=== PATIENT | female | born 1940 | race Caucasian/White ===

== ENCOUNTER 2017-03-03 13:31 | Inpatient (IN) | payer MEDICARE ==
[2017-03-03] MEDS ORDERED: CLINDAMYCIN 600 MG/D5W RTU 50 ML IV ONE (13:45)
--- NOTE | 2017-03-03 13:47 | ER Document Report ---
ED General - General Stated Complaint: LEFT LEG PAIN Time Seen by Provider: 03/03/17 13:40 Mode of Arrival: Medic Information source: Patient Notes: 76-year-old female presents with complaints of fever left leg pain. Patient notes leg pain started last night, fever started today. Patient denies any history of DVTs or PEs. Patient was recently started on Humira TRAVEL OUTSIDE OF THE [place] IN LAST 30 DAYS: No - HPI Onset: Yesterday Onset/Duration: Persistent, Worse Quality of pain: Achy Severity: Mild Pain Level: 1 Associated symptoms: Fever, Leg swelling Exacerbated by: Denies Relieved by: Denies Similar symptoms previously: No Recently seen / treated by doctor: No - Related Data Allergies/Adverse Reactions: No Known Allergies Allergy (Verified 09/03/16 10:17) Past Medical History - Social History Smoking Status: Never Smoker Cigarette use (# per day): No Chew tobacco use (# tins/day): No Smoking Education Provided: No Family History: Reviewed & Not Pertinent - Past Medical History Cardiac Medical History: Reports: Hx Hypercholesterolemia, Hx Hypertension Denies: Hx Heart Attack Pulmonary Medical History: Denies: Hx Asthma Neurological Medical History: Denies: Hx Cerebrovascular Accident, Hx Seizures GI Medical History: Denies: Hx Hepatitis, Hx Hiatal Hernia, Hx Ulcer Musculoskeltal Medical History: Reports Hx Arthritis - Osteo, Rheumatoid Psychiatric Medical History: Reports: Hx Anxiety, Hx Depression Infectious Medical History: Denies: Hx Hepatitis Past Surgical History: Reports: Hx Orthopedic Surgery - bilateral knees, Hx Tonsillectomy. Denies: Hx Hysterectomy, Hx Mastectomy, Hx Open Heart Surgery, Hx Pacemaker - Immunizations Hx Diphtheria, Pertussis, Tetanus Vaccination: No Review of Systems - Review of Systems Notes: PHYSICAL EXAMINATION: GENERAL: Well-appearing, well-nourished and in no acute distress. Febrile HEAD: Atraumatic, normocephalic. EYES: Pupils equal round and reactive to light, extraocular movements intact, conjunctiva are normal. ENT: Nares patent, oropharynx clear without exudates. Moist mucous membranes. NECK: Normal range of motion, supple without lymphadenopathy LUNGS: Breath sounds clear to auscultation bilaterally and equal. No wheezes rales or rhonchi. HEART: Regular rate and rhythm without murmurs ABDOMEN: Soft, nontender, nondistended abdomen. No guarding, no rebound. No masses appreciated. Female : deferred Musculoskeletal: Normal range of motion, no pitting or edema. No cyanosis. NEUROLOGICAL: Cranial nerves grossly intact. Normal speech, normal gait. Normal sensory, motor exams PSYCH: Normal mood, normal affect. SKIN: Left lower extremity edematous erythematous warm to touch from ankle to knee right lower extremity is cool to touch Physical Exam - Vital signs Vitals: Temp Pulse Resp BP Pulse Ox 100.7 F H 103 H 18 123/58 L 95 03/03/17 13:53 03/03/17 13:53 03/03/17 13:53 03/03/17 13:53 03/03/17 13:53 Course - Re-evaluation Re-evalutation: 03/03/17 14:55 Patient is noted to have cellulitis, Doppler was negative, white count was 31, 000, lactic acid is 3.4 patient meets sepsis criteria will be started on IV antibiotics fluids have been bolused - Vital Signs Vital signs: Temp Pulse Resp BP Pulse Ox 100.7 F H 103 H 18 123/58 L 95 03/03/17 13:53 03/03/17 13:53 03/03/17 13:53 03/03/17 13:53 03/03/17 13:53 - Laboratory Result Diagrams: 03/03/17 14:09 03/03/17 14:09 Laboratory results interpreted by me: 03/03/17 03/03/17 03/03/17 14:09 14:09 14:09 WBC 31.2 H* RDW 15.6 H Glucose 133 H Lactic Acid 3.4 H - Diagnostic Test Radiology reviewed: Image reviewed, Reports reviewed - Doppler lower extremity negative Critical Care Note - Critical Care Note Total time excluding time spent on procedures (mins): 40 Comments: 40 minutes of critical care time spent in direct contact evaluating and reevaluating the patient, treating symptoms, reviewing labs and studies and speaking with family and consultants excluding any procedures Discharge - Discharge Clinical Impression: Cellulitis Qualifiers: Site of cellulitis: extremity Site of cellulitis of extremity: lower extremity Laterality: left Qualified Code(s): L03.116 - Cellulitis of left lower limb Sepsis Qualifiers: Sepsis type: sepsis due to unspecified organism Qualified Code(s): A41.9 - Sepsis, unspecified organism Condition: Serious Disposition: ADMITTED INPATIENT Admitting Provider: Hospitalist Unit Admitted: Telemetry
[2017-03-03 14:29] LABS: HEMATOCRIT 43.4 % (36.0-47.0); HEMOGLOBIN 14.4 g/dL (12.0-15.5); HGB HCT DIFFERENCE -0.2; MEAN CORPUSCULAR HEMOGLOBIN 31.7 pg (27.0-33.4); MEAN CORPUSCULAR HGB CONC 33.1 g/dL (32.0-36.0); MEAN CORPUSCULAR VOLUME 96 fl (80-97); RED BLOOD COUNT 4.54 10^6/uL (3.72-5.28); RED CELL DISTRIBUTION WIDTH 15.6 % (11.5-14.0)
[2017-03-03 14:37] LABS: WHITE BLOOD COUNT 31.2 10^3/uL (4.0-10.5)
[2017-03-03 14:40] LABS: ALANINE AMINOTRANSFERASE 34 U/L (9-52); ALBUMIN 4.2 g/dL (3.5-5.0); ALKALINE PHOSPHATASE 107 U/L (38-126); ANION GAP 13 (5-19); ASPARTATE AMINO TRANSFERASE 24 U/L (14-36); BILIRUBIN,DIRECT 0.3 mg/dL (0.0-0.4); BILIRUBIN,TOTAL 0.9 mg/dL (0.2-1.3); BLOOD UREA NITROGEN 17 mg/dL (7-20); CALCIUM 9.3 mg/dL (8.4-10.2); CARBON DIOXIDE 22 mmol/L (22-30); CHLORIDE 104 mmol/L (98-107); CREATININE RESULT 0.58 mg/dL (0.52-1.25); GLUCOSE 133 mg/dL (75-110); POTASSIUM 4.4 mmol/L (3.6-5.0); SODIUM 139.1 mmol/L (137-145); TOTAL PROTEIN 6.5 g/dL (6.3-8.2)
[2017-03-03 14:47] LABS: ANISOCYTOSIS SLIGHT; BAND NEUTROPHILS % (MANUAL) 5 % (3-5); BASOPHILS % (MANUAL) 0 % (0-2); EOSINOPHILS % (MANUAL) 0 % (0-6); LYMPHOCYTES % (MANUAL) 1 % (13-45); TOTAL CELLS COUNTED 100
[2017-03-03 14:54] LABS: POIKILOCYTOSIS SLIGHT; POLYCHROMASIA SLIGHT; STOMATOCYTES SLIGHT; TOXIC GRANULATION SLIGHT; TOXIC VACUOLATION PRESENT
[2017-03-03] MEDS ORDERED: MORPHINE SULFATE 10 MG/ML INJ IV ONE (14:57)
[2017-03-03] MEDS ORDERED: ACETAMINOPHEN 325 MG TABLET PO ONE (14:59)
[2017-03-03] MEDS: NORMAL SALINE 1000 ML 1,000 ML IV PRN ×4 (14:59→18:44)
[2017-03-03] MEDS ORDERED: TEMAZEPAM 15 MG CAPSULE PO PRN (15:26)
[2017-03-03] MEDS ORDERED: ACETAMINOPHEN 325 MG TABLET PO PRN (15:26)
[2017-03-03] MEDS ORDERED: ONDANSETRON HCL INJ/PF 4 MG/2 ML SDV IV PRN (15:26)
[2017-03-03] MEDS ORDERED: NORMAL SALINE 1000 ML 1,000 ML IV PRN (15:26)
[2017-03-03] MEDS ORDERED: VANCOMYCIN HCL 0 MG in DEXTROSE 5%-WATER 250 ML IV NR (15:45)
--- NOTE | 2017-03-03 15:54 | PDOC H&P ---
History of Present Illness Admission Date/PCP: 03/03/17 15:25 NAYELY VALDEZ MD Patient complains of: Left leg redness and fever History of Present Illness: BOOM OROPEZA is a 76 year old female with past medical history of essential hypertension, rheumatoid arthritis, and anxiety presents to [facility]'s afternoon with complaints of fever, chills and left lower leg redness and pain. She states she began having pain in the left leg last evening. She did not notice any redness at that time. She states she began not feeling well this morning. She denies any rigors or fevers, however the home health EMPLOYEE ADVISER in the room states she was shaking when she arrived this afternoon. She was found to have a fever of 100.7 she states she was recently started on Humira by her real estate development manager. She's had a total of 3 Humira infusions. Last infusion was 4 days ago. She denies any trauma to the left lower leg. She's had no prior history of cellulitis. Patient's home medications are pending pharmacy verification. Past Medical History Cardiac Medical History: Reports: Hyperlipidema, Hypertension Denies: Myocardial Infarction Pulmonary Medical History: Denies: Asthma EENT Medical History: Reports: None Neurological Medical History: Reports: None Denies: Seizures Endocrine Medical History: Reports: None Renal/ Medical History: Reports: None Malignancy Medical History: Reports: None GI Medical History: Reports: None Denies: Hepatitis, Hiatal Hernia Musculoskeltal Medical History: Reports: Arthritis - Osteo, Rheumatoid Skin Medical History: Reports: None Psychiatric Medical History: Reports: Depression Traumatic Medical History: Reports: None Hematology: Reports: None Denies: Anemia, Sickle Cell Disease Infectious Medical History: Reports: None Past Surgical History Past Surgical History: Reports: Orthopedic Surgery - bilateral knees, Tonsillectomy Denies: Amputation, Hysterectomy, Mastectomy, Pacemaker Social History Information Source: Patient Lives with: Family Smoking Status: Never Smoker Frequency of Alcohol Use: None Hx Recreational Drug Use: No Hx Prescription Drug Abuse: No - Advance Directive Resuscitation Status: Full Code Surrogate healthcare decision maker:: Daughter, is her healthcare surrogate decision-maker Family History Family History: Reviewed & Not Pertinent Parental Family History Reviewed: Yes Children Family History Reviewed: Yes Sibling(s) Family History Reviewed.: Yes Medication/Allergy Allergies/Adverse Reactions: No Known Allergies Allergy (Verified 09/03/16 10:17) Review of Systems Constitutional: PRESENT: chills, fever(s). ABSENT: headache(s), weight gain, weight loss Eyes: ABSENT: visual disturbances Ears: ABSENT: hearing changes Cardiovascular: ABSENT: chest pain, dyspnea on exertion, edema, orthropnea, palpitations Respiratory: ABSENT: cough, hemoptysis Gastrointestinal: ABSENT: abdominal pain, constipation, diarrhea, hematemesis, hematochezia, nausea, vomiting Genitourinary: ABSENT: dysuria, hematuria Musculoskeletal: ABSENT: joint swelling Integumentary: PRESENT: erythema - left lower leg circumferentially Neurological: ABSENT: abnormal gait, abnormal speech, confusion, dizziness, focal weakness, syncope Psychiatric: ABSENT: anxiety, depression, homidical ideation, suicidal ideation Endocrine: ABSENT: cold intolerance, heat intolerance, polydipsia, polyuria Hematologic/Lymphatic: ABSENT: easy bleeding, easy bruising Physical Exam Vital Signs: Temp Pulse Resp BP Pulse Ox 100.7 F H 103 H 18 123/58 L 95 03/03/17 13:53 03/03/17 13:53 03/03/17 13:53 03/03/17 13:53 03/03/17 13:53 General appearance: PRESENT: no acute distress, well-developed, well-nourished Head exam: PRESENT: atraumatic, normocephalic Eye exam: PRESENT: conjunctiva pink, EOMI, PERRLA. ABSENT: scleral icterus Ear exam: PRESENT: normal external ear exam Mouth exam: PRESENT: moist, tongue midline Neck exam: ABSENT: carotid bruit, JVD, lymphadenopathy, thyromegaly Respiratory exam: PRESENT: clear to auscultation ollie. ABSENT: rales, rhonchi, wheezes Cardiovascular exam: PRESENT: RRR. ABSENT: diastolic murmur, rubs, systolic murmur Pulses: PRESENT: normal dorsalis pedis pul Vascular exam: PRESENT: normal capillary refill Rectal exam: PRESENT: deferred Extremities exam: PRESENT: full ROM. ABSENT: calf tenderness, clubbing, pedal edema Neurological exam: PRESENT: alert, awake, oriented to person, oriented to place , oriented to time, oriented to situation, CN II-XII grossly intact. ABSENT: motor sensory deficit Psychiatric exam: PRESENT: appropriate affect, normal mood. ABSENT: homicidal ideation, suicidal ideation Skin exam: PRESENT: erythema, warm, other - mild swelling left lower extremity circumferentially Results Impressions: Venous Doppler Study 03/03/17 13:45 IMPRESSION: NO EVIDENCE DVT OR SVT IN EITHER LEG. Assessment & Plan - Diagnosis (1) Sepsis Qualifiers: Sepsis type: sepsis due to unspecified organism Qualified Code(s): A41.9 - Sepsis, unspecified organism Is this a current diagnosis for this admission?: YesPlan: Patient with left lower extremity cellulitis with recent addition of Humira for rheumatoid arthritis. She is febrile, tachycardic and tachypneic. She presents as blood pressure 120/76. She was given IV hydration and IV broad- spectrum antibiotics. (2) Cellulitis Qualifiers: Site of cellulitis: extremity Site of cellulitis of extremity: lower extremity Laterality: left Qualified Code(s): L03.116 - Cellulitis of left lower limb Is this a current diagnosis for this admission?: YesPlan: Blood cultures 2 were obtained. IV antibiotics were initiated. (3) HTN (hypertension) Is this a current diagnosis for this admission?: YesPlan: Continue patient's home medications. 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 (5) Rheumatoid arthritis Qualifiers: Rheumatoid arthritis location: multiple sites Is this a current diagnosis for this admission?: YesPlan: When necessary analgesics. - Time Time Spent: 50 to 70 Minutes Critical Time spent with patient: 25-34 minutes Medications reviewed and adjusted accordingly: Yes Anticipated discharge: Home
[2017-03-03] MEDS ORDERED: ENOXAPARIN SODIUM INJ 40 MG/0.4 ML DISP.SYRIN SUBCUT ONE (16:00)
[2017-03-03] MEDS: DOCUSATE SODIUM 100 MG CAPSULE PO SCH (18:38)
[2017-03-03] MEDS: VANCOMYCIN HCL 1,000 MG in DEXTROSE 5%-WATER 250 ML IV SCH (18:45)
[2017-03-03] MEDS: CLINDAMYCIN 600 MG/D5W RTU 50 ML IV SCH (22:03)
[2017-03-03] MEDS: MORPHINE SULFATE 10 MG/ML INJ IV PRN (23:23)
[2017-03-04] MEDS: VANCOMYCIN HCL 1,000 MG in DEXTROSE 5%-WATER 250 ML IV SCH ×2 (05:26→18:17)
[2017-03-04 06:04] LABS: HEMATOCRIT 37.5 % (36.0-47.0); HEMOGLOBIN 12.7 g/dL (12.0-15.5); HGB HCT DIFFERENCE 0.6; MEAN CORPUSCULAR HEMOGLOBIN 31.7 pg (27.0-33.4); MEAN CORPUSCULAR HGB CONC 33.8 g/dL (32.0-36.0); MEAN CORPUSCULAR VOLUME 94 fl (80-97); RED BLOOD COUNT 4.01 10^6/uL (3.72-5.28); RED CELL DISTRIBUTION WIDTH 15.4 % (11.5-14.0); WHITE BLOOD COUNT 24.9 10^3/uL (4.0-10.5)
[2017-03-04 06:23] LABS: ANION GAP 13 (5-19); BLOOD UREA NITROGEN 10 mg/dL (7-20); CALCIUM 8.6 mg/dL (8.4-10.2); CARBON DIOXIDE 18 mmol/L (22-30); CHLORIDE 110 mmol/L (98-107); CREATININE RESULT 0.59 mg/dL (0.52-1.25); GLUCOSE 123 mg/dL (75-110); POTASSIUM 3.6 mmol/L (3.6-5.0); SODIUM 141.3 mmol/L (137-145)
[2017-03-04 06:38] LABS: BASOPHILS % (MANUAL) 0 % (0-2); EOSINOPHILS % (MANUAL) 0 % (0-6); LYMPHOCYTES % (MANUAL) 5 % (13-45); TOTAL CELLS COUNTED 100
[2017-03-04 06:39] LABS: ANISOCYTOSIS SLIGHT
[2017-03-04] MEDS ORDERED: (PENDING PHARMACY ID) (Tolterodine Tartrate [Tolterodine Tartrate Er] 4 MG) PO PRN (08:21)
[2017-03-04] MEDS ORDERED: TOLTERODINE TARTRATE 1 MG TABLET PO PRN (08:41)
[2017-03-04] MEDS: OXYCODONE-ACETAMINOPHEN 5-325 MG TABLET PO PRN ×2 (08:42→13:09)
[2017-03-04] MEDS: ENOXAPARIN SODIUM INJ 40 MG/0.4 ML DISP.SYRIN SUBCUT SCH (08:43)
[2017-03-04] MEDS: CLINDAMYCIN 600 MG/D5W RTU 50 ML IV SCH ×3 (08:43→22:50)
[2017-03-04] MEDS: FOLIC ACID 1 MG TABLET PO SCH (09:36)
[2017-03-04] MEDS: LEVOTHYROXINE SODIUM 0.075 MG TABLET PO SCH (09:37)
[2017-03-04] MEDS: LORAZEPAM 1 MG TABLET PO PRN (09:38)
[2017-03-04] MEDS: PREDNISONE 5 MG TABLET PO SCH (09:39)
[2017-03-04] MEDS: DULOXETINE HCL 30 MG CAPSULE.DR PO SCH ×2 (09:39→21:16)
[2017-03-04] MEDS: DOCUSATE SODIUM 100 MG CAPSULE PO SCH ×2 (09:39→18:17)
--- NOTE | 2017-03-04 11:13 | PDOC PROGRESS REPORT ---
Subjective Progress Note for:: 03/04/17 Subjective:: Patient is seen on morning rounds. She is sitting out of bed in bedside chair. Her left lower leg remains red and warm. She states she feels better than she did yesterday however. She is no longer having fevers and chills. She states she remembered last night being scratched by her cat on the back of her left leg several days ago. She recently started on Becky therapy for her rheumatoid arthritis. She voices no other complaints at the present time. Rest of review of systems is negative. Physical Exam Vital Signs: Temp Pulse Resp BP Pulse Ox 99.8 F 90 20 125/55 L 98 03/04/17 04:30 03/04/17 04:30 03/04/17 04:30 03/04/17 04:30 03/04/17 04:30 Intake & Output 03/03/17 03/04/17 03/05/17 06:59 06:59 06:59 Intake Total 702 Output Total 700 Balance 2 Weight 84 kg General appearance: PRESENT: no acute distress, well-developed, well-nourished Head exam: PRESENT: atraumatic, normocephalic Eye exam: PRESENT: conjunctiva pink, EOMI, PERRLA. ABSENT: scleral icterus Ear exam: PRESENT: normal external ear exam Mouth exam: PRESENT: moist, tongue midline Neck exam: ABSENT: carotid bruit, JVD, lymphadenopathy, thyromegaly Respiratory exam: PRESENT: clear to auscultation ollie. ABSENT: rales, rhonchi, wheezes Cardiovascular exam: PRESENT: RRR. ABSENT: diastolic murmur, rubs, systolic murmur Pulses: PRESENT: normal dorsalis pedis pul Vascular exam: PRESENT: normal capillary refill GI/Abdominal exam: PRESENT: normal bowel sounds, soft. ABSENT: distended, guarding, mass, organolmegaly, rebound, tenderness Extremities exam: PRESENT: calf tenderness, +1 edema - left lower extremity Musculoskeletal exam: PRESENT: ambulatory, full ROM, tenderness - left lower leg Neurological exam: PRESENT: alert, awake, oriented to person, oriented to place , oriented to time, oriented to situation, CN II-XII grossly intact. ABSENT: motor sensory deficit Psychiatric exam: PRESENT: appropriate affect, normal mood. ABSENT: homicidal ideation, suicidal ideation Skin exam: PRESENT: dry, intact, warm. ABSENT: cyanosis, rash Results Laboratory Results: 03/04/17 05:47 03/04/17 05:47 03/03/17 03/04/17 03/04/17 18:18 05:47 05:47 WBC 24.9 H RBC 4.01 Hgb 12.7 Hct 37.5 MCV 94 MCH 31.7 MCHC 33.8 RDW 15.4 H Plt Count 222 Seg Neutrophils % Not Reportable Lymphocytes % Not Reportable Monocytes % Not Reportable Eosinophils % Not Reportable Basophils % Not Reportable Absolute Neutrophils Not Reportable Absolute Lymphocytes Not Reportable Absolute Monocytes Not Reportable Absolute Eosinophils Not Reportable Absolute Basophils Not Reportable Sodium 141.3 Potassium 3.6 Chloride 110 H Carbon Dioxide 18 L Anion Gap 13 BUN 10 Creatinine 0.59 Est GFR ( Amer) > 60 Est GFR (Non-Af Amer) > 60 Glucose 123 H Lactic Acid 2.7 H Calcium 8.6 Impressions: Venous Doppler Study 03/03/17 13:45 IMPRESSION: NO EVIDENCE DVT OR SVT IN EITHER LEG. Assessment & Plan - Diagnosis (1) Sepsis Qualifiers: Sepsis type: sepsis due to unspecified organism Qualified Code(s): A41.9 - Sepsis, unspecified organism Is this a current diagnosis for this admission?: YesPlan: Tachycardia, tachypnea and fever has resolved (2) Cellulitis Qualifiers: Site of cellulitis: extremity Site of cellulitis of extremity: lower extremity Laterality: left Qualified Code(s): L03.116 - Cellulitis of left lower limb Is this a current diagnosis for this admission?: YesPlan: Blood cultures 2 were obtained. IV antibiotics were initiated. (3) HTN (hypertension) Is this a current diagnosis for this admission?: YesPlan: Continue patient's home medications. 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 (5) Rheumatoid arthritis Qualifiers: Rheumatoid arthritis location: multiple sites Is this a current diagnosis for this admission?: YesPlan: When necessary analgesics. - Time Time Spent with patient: 25-34 minutes Critical Time spent with patient: 15-24 minutes Medications reviewed and adjusted accordingly: Yes Anticipated discharge: Home with Homehealth
[2017-03-04] MEDS: AMLODIPINE BESYLATE 10 MG TABLET PO SCH (21:16)
[2017-03-04] MEDS: VALSARTAN 160 MG TABLET PO SCH (21:17)
[2017-03-04] MEDS: MORPHINE SULFATE 10 MG/ML INJ IV PRN (21:17)
[2017-03-04] MEDS ORDERED: (PENDING PHARMACY ID) (Valsartan [Diovan] 320 MG) PO SCH (22:00)
[2017-03-05] MEDS: MORPHINE SULFATE 10 MG/ML INJ IV PRN ×2 (04:53→16:24)
[2017-03-05] MEDS: VANCOMYCIN HCL 1,000 MG in DEXTROSE 5%-WATER 250 ML IV SCH (05:44)
[2017-03-05 06:03] LABS: ABSOLUTE BASOPHILS # (AUTO) 0.1 10^3/uL (0.0-0.2); ABSOLUTE EOSINOPHILS # (AUTO) 0.1 10^3/uL (0.0-0.6); ABSOLUTE LYMPHOCYTES (AUTO) 1.6 10^3/uL (0.5-4.7); ABSOLUTE MONOCYTES (AUTO) 1.3 10^3/uL (0.1-1.4); ABSOLUTE NEUT (AUTO) 16.4 10^3/uL (1.7-8.2); BASOPHILS % (AUTO) 0.3 % (0-2); EOSINOPHILS % (AUTO) 0.3 % (0-6); HEMATOCRIT 37.1 % (36.0-47.0); HEMOGLOBIN 12.4 g/dL (12.0-15.5); HGB HCT DIFFERENCE 0.1; LYMPHOCYTES % (AUTO) 8.2 % (13-45); MEAN CORPUSCULAR HEMOGLOBIN 31.4 pg (27.0-33.4); MEAN CORPUSCULAR HGB CONC 33.5 g/dL (32.0-36.0); MEAN CORPUSCULAR VOLUME 94 fl (80-97); MONOCYTES % (AUTO) 6.7 % (3-13); RED BLOOD COUNT 3.95 10^6/uL (3.72-5.28); RED CELL DISTRIBUTION WIDTH 15.4 % (11.5-14.0); SEGMENTED NEUTROPHILS % (AUTO) 84.5 % (42-78); WHITE BLOOD COUNT 19.4 10^3/uL (4.0-10.5)
[2017-03-05 06:23] LABS: ANION GAP 14 (5-19); BLOOD UREA NITROGEN 6 mg/dL (7-20); CALCIUM 8.5 mg/dL (8.4-10.2); CARBON DIOXIDE 20 mmol/L (22-30); CHLORIDE 108 mmol/L (98-107); CREATININE RESULT 0.47 mg/dL (0.52-1.25); GLUCOSE 118 mg/dL (75-110); POTASSIUM 3.1 mmol/L (3.6-5.0); SODIUM 142.1 mmol/L (137-145)
[2017-03-05] MEDS ORDERED: POTASSIUM CHLORIDE 10 MEQ TABLET.SA PO ONE (08:40)
[2017-03-05] MEDS: OXYCODONE-ACETAMINOPHEN 5-325 MG TABLET PO PRN ×3 (08:48→19:52)
[2017-03-05] MEDS: FOLIC ACID 1 MG TABLET PO SCH (08:49)
[2017-03-05] MEDS: CLINDAMYCIN 600 MG/D5W RTU 50 ML IV SCH ×3 (08:50→21:45)
[2017-03-05] MEDS: ENOXAPARIN SODIUM INJ 40 MG/0.4 ML DISP.SYRIN SUBCUT SCH (08:51)
[2017-03-05 08:52] LABS: PATH REVIEW PATHOLOGIST REVIEWED
[2017-03-05] MEDS: LEVOTHYROXINE SODIUM 0.075 MG TABLET PO SCH (11:26)
[2017-03-05] MEDS: PREDNISONE 5 MG TABLET PO SCH (11:26)
[2017-03-05] MEDS: DULOXETINE HCL 30 MG CAPSULE.DR PO SCH ×2 (11:27→21:46)
[2017-03-05] MEDS: DOCUSATE SODIUM 100 MG CAPSULE PO SCH ×2 (11:27→17:51)
[2017-03-05] MEDS: LORAZEPAM 1 MG TABLET PO PRN (11:34)
--- NOTE | 2017-03-05 11:41 | Physician Advisory Note ---
Physician Advisor ProgressNote .: Pursuant to the plan for [facility], I have reviewed the medical record for this patient. Physician Advisor Statement: Please be sure to make it explicit in notes that the suspected sepsis is due to the LLE cellulitis. The coders aren't allowed to assume what providers attribute as cause. Thanks! CK
--- NOTE | 2017-03-05 11:42 | PDOC PROGRESS REPORT ---
Subjective Progress Note for:: 03/05/17 Subjective:: Patient is seen on morning rounds. She is sitting out of bed in bedside chair. Her left lower leg remains red and warm. She states she feels better than she did yesterday however. She is no longer having fevers and chills. She states she remembered last night being scratched by her cat on the back of her left leg several days ago. She recently started on Becky therapy for her rheumatoid arthritis. She voices no other complaints at the present time. Rest of review of systems is negative. Physical Exam Vital Signs: Temp Pulse Resp BP Pulse Ox 97.9 F 74 18 132/72 H 97 03/05/17 08:00 03/05/17 08:00 03/05/17 08:00 03/05/17 08:00 03/05/17 08:00 Intake & Output 03/04/17 03/05/17 03/06/17 06:59 06:59 06:59 Intake Total 702 3367 Output Total 700 2000 Balance 2 1367 Weight 84 kg 83 kg General appearance: PRESENT: no acute distress, well-developed, well-nourished Head exam: PRESENT: atraumatic, normocephalic Eye exam: PRESENT: conjunctiva pink, EOMI, PERRLA. ABSENT: scleral icterus Ear exam: PRESENT: normal external ear exam Mouth exam: PRESENT: moist, tongue midline Neck exam: ABSENT: carotid bruit, JVD, lymphadenopathy, thyromegaly Respiratory exam: PRESENT: clear to auscultation ollie. ABSENT: rales, rhonchi, wheezes Cardiovascular exam: PRESENT: RRR. ABSENT: diastolic murmur, rubs, systolic murmur Pulses: PRESENT: normal dorsalis pedis pul Vascular exam: PRESENT: normal capillary refill GI/Abdominal exam: PRESENT: normal bowel sounds, soft. ABSENT: distended, guarding, mass, organolmegaly, rebound, tenderness Extremities exam: PRESENT: calf tenderness, tenderness, +1 edema - left lower leg Musculoskeletal exam: PRESENT: ambulatory, tenderness Neurological exam: PRESENT: alert, awake, oriented to person, oriented to place , oriented to time, oriented to situation, CN II-XII grossly intact. ABSENT: motor sensory deficit Psychiatric exam: PRESENT: appropriate affect, normal mood. ABSENT: homicidal ideation, suicidal ideation Skin exam: PRESENT: erythema, warm, other - anterior left lower leg Results Laboratory Results: 03/05/17 05:43 03/05/17 05:43 03/05/17 03/05/17 05:43 05:43 WBC 19.4 H RBC 3.95 Hgb 12.4 Hct 37.1 MCV 94 MCH 31.4 MCHC 33.5 RDW 15.4 H Plt Count 175 Seg Neutrophils % 84.5 H Lymphocytes % 8.2 L Monocytes % 6.7 Eosinophils % 0.3 Basophils % 0.3 Absolute Neutrophils 16.4 H Absolute Lymphocytes 1.6 Absolute Monocytes 1.3 Absolute Eosinophils 0.1 Absolute Basophils 0.1 Sodium 142.1 Potassium 3.1 L Chloride 108 H Carbon Dioxide 20 L Anion Gap 14 BUN 6 L Creatinine 0.47 L Est GFR ( Amer) > 60 Est GFR (Non-Af Amer) > 60 Glucose 118 H Calcium 8.5 Impressions: Venous Doppler Study 03/03/17 13:45 IMPRESSION: NO EVIDENCE DVT OR SVT IN EITHER LEG. Assessment & Plan - Diagnosis (1) Sepsis Qualifiers: Sepsis type: sepsis due to unspecified organism Qualified Code(s): A41.9 - Sepsis, unspecified organism Is this a current diagnosis for this admission?: YesPlan: Tachycardia, tachypnea and fever has resolved (2) Cellulitis Qualifiers: Site of cellulitis: extremity Site of cellulitis of extremity: lower extremity Laterality: left Qualified Code(s): L03.116 - Cellulitis of left lower limb Is this a current diagnosis for this admission?: YesPlan: Blood cultures 2 were obtained. IV antibiotics were initiated. (3) HTN (hypertension) Is this a current diagnosis for this admission?: YesPlan: Continue patient's home medications. 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 (5) Rheumatoid arthritis Qualifiers: Rheumatoid arthritis location: multiple sites Is this a current diagnosis for this admission?: YesPlan: When necessary analgesics. - Time Time Spent with patient: 25-34 minutes Critical Time spent with patient: 15-24 minutes Medications reviewed and adjusted accordingly: Yes Anticipated discharge: Home Within: within 24 hours
[2017-03-05] MEDS: TRIAMCINOLONE ACETONIDE 0.1% CREAM 15 GM TOP SCH (17:50)
[2017-03-05] MEDS: LORAZEPAM 1 MG TABLET PO SCH (17:51)
[2017-03-05] MEDS: VANCOMYCIN HCL 1,500 MG in DEXTROSE 5%-WATER 250 ML IV SCH (17:52)
[2017-03-05] MEDS: VALSARTAN 160 MG TABLET PO SCH (21:46)
[2017-03-05] MEDS: AMLODIPINE BESYLATE 10 MG TABLET PO SCH (21:46)
[2017-03-06] MEDS: OXYCODONE-ACETAMINOPHEN 5-325 MG TABLET PO PRN ×2 (00:58→06:36)
[2017-03-06] MEDS: CLINDAMYCIN 600 MG/D5W RTU 50 ML IV SCH (05:26)
[2017-03-06 05:55] LABS: ABSOLUTE BASOPHILS # (AUTO) 0.1 10^3/uL (0.0-0.2); ABSOLUTE EOSINOPHILS # (AUTO) 0.1 10^3/uL (0.0-0.6); ABSOLUTE LYMPHOCYTES (AUTO) 1.4 10^3/uL (0.5-4.7); ABSOLUTE MONOCYTES (AUTO) 1.6 10^3/uL (0.1-1.4); ABSOLUTE NEUT (AUTO) 12.2 10^3/uL (1.7-8.2); BASOPHILS % (AUTO) 0.5 % (0-2); EOSINOPHILS % (AUTO) 0.4 % (0-6); HEMATOCRIT 39.7 % (36.0-47.0); HEMOGLOBIN 13.2 g/dL (12.0-15.5); HGB HCT DIFFERENCE -0.1; LYMPHOCYTES % (AUTO) 9.1 % (13-45); MEAN CORPUSCULAR HEMOGLOBIN 31.7 pg (27.0-33.4); MEAN CORPUSCULAR HGB CONC 33.3 g/dL (32.0-36.0); MEAN CORPUSCULAR VOLUME 95 fl (80-97); MONOCYTES % (AUTO) 10.4 % (3-13); RED BLOOD COUNT 4.16 10^6/uL (3.72-5.28); RED CELL DISTRIBUTION WIDTH 15.4 % (11.5-14.0); SEGMENTED NEUTROPHILS % (AUTO) 79.6 % (42-78); WHITE BLOOD COUNT 15.4 10^3/uL (4.0-10.5)
[2017-03-06] MEDS ORDERED: LEVOTHYROXINE SODIUM 0.075 MG TABLET PO SCH (06:00)
[2017-03-06 06:30] LABS: ANION GAP 10 (5-19); BLOOD UREA NITROGEN 6 mg/dL (7-20); CALCIUM 9.1 mg/dL (8.4-10.2); CARBON DIOXIDE 24 mmol/L (22-30); CHLORIDE 104 mmol/L (98-107); CREATININE RESULT 0.59 mg/dL (0.52-1.25); GLUCOSE 133 mg/dL (75-110); POTASSIUM 3.3 mmol/L (3.6-5.0); SODIUM 137.8 mmol/L (137-145)
[2017-03-06] MEDS: VANCOMYCIN HCL 1,500 MG in DEXTROSE 5%-WATER 250 ML IV SCH (06:33)
[2017-03-06] MEDS: ENOXAPARIN SODIUM INJ 40 MG/0.4 ML DISP.SYRIN SUBCUT SCH (07:58)
[2017-03-06] MEDS: DULOXETINE HCL 30 MG CAPSULE.DR PO SCH (09:11)
[2017-03-06] MEDS: TRIAMCINOLONE ACETONIDE 0.1% CREAM 15 GM TOP SCH (09:11)
[2017-03-06] MEDS: PREDNISONE 5 MG TABLET PO SCH (09:12)
[2017-03-06] MEDS: LORAZEPAM 1 MG TABLET PO SCH (09:12)
[2017-03-06] MEDS: DOCUSATE SODIUM 100 MG CAPSULE PO SCH (09:12)
[2017-03-06] MEDS: FOLIC ACID 1 MG TABLET PO SCH (09:12)
[2017-03-06 11:28] VITALS: BP 132/72
--- NOTE | 2017-03-06 13:23 | PDOC DISCHARGE SUMMARY ---
General - Admit/Disc Date/PCP Admission Date/Primary Care Provider: 03/03/17 15:26 NAYELY VALDEZ MD Discharge Date: 03/06/17 - Discharge Diagnosis (1) Sepsis Is this a current diagnosis for this admission?: YesSummary: Secondary to left lower extremity cellulitis . Tachycardia, fever and leucocytosis has resolved (2) Cellulitis Is this a current diagnosis for this admission?: YesSummary: Left lower extremity. Erythema and leucocytosis is improving. Began from an accidental cat scratch.Will continue clindamycin 300 mg every 6hrs for the next 7 days (3) HTN (hypertension) Is this a current diagnosis for this admission?: YesSummary: Continue current medications patient is normotensive (4) Hypothyroidism Is this a current diagnosis for this admission?: YesSummary: Continue synthroid (5) Rheumatoid arthritis Is this a current diagnosis for this admission?: YesSummary: Continue current medications. Follow up with [facility] - Additional Information Resuscitation Status: Full Code Discharge Activity: Activity As Tolerated, Balance Activity w/Rest, Keep Legs Elevated Home Medications: Amlodipine Besylate [Norvasc 10 mg Tablet] 10 mg PO QHS 03/03/17 Duloxetine HCl [Cymbalta] 60 mg PO Q12 03/03/17 Folic Acid [Folvite 1 mg Tablet] 3 mg PO DAILY 03/03/17 Hydrocodone/Ibuprofen [Hydrocodone-Ibuprofen 7.5-200] 1 tab PO Q4HP PRN Levothyroxine Sodium [Synthroid 0.075 mg Tablet] 0.075 mg PO DAILY 03/03/17 Lorazepam [Ativan 1 mg Tablet] 1 mg PO TIDP PRN 03/03/17 Methotrexate Sodium [Rheumatrex 2.5 mg Tablet] 15 mg PO DAO@1700 03/03/17 Prednisone [Deltasone 5 mg Tablet] 5 mg PO DAILY 03/03/17 Tolterodine Tartrate [Tolterodine Tartrate ER] 4 mg PO HSP PRN 03/03/17 Valsartan [Diovan] 320 mg PO QHS 03/03/17 Acetaminophen [Tylenol 325 mg Tablet] 650 mg PO Q4HP PRN tablet 03/06/17 Clindamycin HCl [Cleocin HCl] 300 mg PO Q6H #28 capsule 03/06/17 Lactobacillus Acidophilus [Acidophilus Lactobacilli] 1 each PO BID PRN #14 capsule 03/06/17 Triamcinolone Acetonide [Aristocort 0.1% Cream] 1 applic TOP TID tube 03/06/17 History of Present Illness Patient complains of: Fever, chills and left lower extremity redness History of Present Illness: BOOM OROPEZA is a 76 year old female with past medical history of essential hypertension, rheumatoid arthritis, and anxiety presents to [facility]'s afternoon with complaints of fever, chills and left lower leg redness and pain. She states she began having pain in the left leg last evening. She did not notice any redness at that time. She states she began not feeling well this morning. She denies any rigors or fevers, however the home health [employer]CH[employer] in the room states she was shaking when she arrived this afternoon. She was found to have a fever of 100.7 she states she was recently started on Humira by her recruiter. She's had a total of 3 Humira infusions. Last infusion was 4 days ago. She denies any trauma to the left lower leg. She's had no prior history of cellulitis. Patient's home medications are pending pharmacy verification. Hospital Course Hospital Course: Patient was admitted to the [facility] on telemetry. She was aggressively rehydrated with IV fluids. She had broad spectrum IV antibiotics initiated after blood cultures x 2 were obtained. Her fever resolved over the next 24 hrs. Leucocytosis and erythema of the left leg improved each day. Venous duplex of the left leg was negative. Patient recalled being accidently scratched in the back of the left leg by neighbor's cat 2 days prio to admission. Today she feels much improved . She feels ready for discharge. Physical Exam Vital Signs: Temp Pulse Resp BP Pulse Ox 98.5 F 92 22 H 132/72 H 98 03/06/17 11:24 03/06/17 11:24 03/06/17 11:24 03/06/17 11:24 03/06/17 11:24 Intake & Output 03/05/17 03/06/17 03/07/17 06:59 06:59 06:59 Intake Total 3363 1780 Output Total 1999 1924 Balance 1367 -145 Weight 83 kg 82.9 kg General appearance: PRESENT: no acute distress, well-developed, well-nourished Head exam: PRESENT: atraumatic, normocephalic Eye exam: PRESENT: conjunctiva pink, EOMI, PERRLA. ABSENT: scleral icterus Ear exam: PRESENT: normal external ear exam Neck exam: ABSENT: carotid bruit, JVD, lymphadenopathy, thyromegaly Respiratory exam: PRESENT: clear to auscultation ollie. ABSENT: rales, rhonchi, wheezes Cardiovascular exam: PRESENT: RRR. ABSENT: diastolic murmur, rubs, systolic murmur Pulses: PRESENT: normal dorsalis pedis pul Vascular exam: PRESENT: normal capillary refill Rectal exam: PRESENT: deferred Extremities exam: PRESENT: calf tenderness, full ROM, +1 edema - left lower extremity. ABSENT: clubbing, pedal edema Musculoskeletal exam: PRESENT: ambulatory, tenderness Neurological exam: PRESENT: alert, awake, oriented to person, oriented to place , oriented to time, oriented to situation, CN II-XII grossly intact. ABSENT: motor sensory deficit Psychiatric exam: PRESENT: appropriate affect, normal mood. ABSENT: homicidal ideation, suicidal ideation Skin exam: PRESENT: dry, erythema - left anterior lower leg improving, intact, warm. ABSENT: cyanosis, rash Results Laboratory Results: 03/06/17 04:55 03/06/17 04:55 03/06/17 03/06/17 04:55 04:55 WBC 15.4 H RBC 4.16 Hgb 13.2 Hct 39.7 MCV 95 MCH 31.7 MCHC 33.3 RDW 15.4 H Plt Count 214 Seg Neutrophils % 79.6 H Lymphocytes % 9.1 L Monocytes % 10.4 Eosinophils % 0.4 Basophils % 0.5 Absolute Neutrophils 12.2 H Absolute Lymphocytes 1.4 Absolute Monocytes 1.6 H Absolute Eosinophils 0.1 Absolute Basophils 0.1 Sodium 137.8 Potassium 3.3 L Chloride 104 Carbon Dioxide 24 Anion Gap 10 BUN 6 L Creatinine 0.59 Est GFR ( Amer) > 60 Est GFR (Non-Af Amer) > 60 Glucose 133 H Calcium 9.1 Impressions: Venous Doppler Study 03/03/17 13:45 IMPRESSION: NO EVIDENCE DVT OR SVT IN EITHER LEG. Qualifiers PATEINT BEING DISCHARGED WITH ANY OF THE FOLLOWING DIAGNOSIS?: No Plan Discharge Plan: Home with daughter Time Spent: Less than 30 Minutes
[2017-03-08] MEDS ORDERED: METHOTREXATE SODIUM 2.5 MG TABLET PO SCH (17:00)
== END 2017-03-06 12:00 | disposition home or self-care (01) | DRG 872 ==
LOC: ER 13:31 → UNDOADMIN 15:25 → EH 15:25 → 3S 20:55
PROVIDERS: ADMIT Family Medicine; ATTEND Family Medicine
DX: A41.9 Sepsis, unspecified organism (principal); L03.116 Cellulitis of left lower limb; I10 Essential (primary) hypertension; M06.9 Rheumatoid arthritis, unspecified; W55.03XS Scratched by cat, sequela; F32.9 Major depressive disorder, single episode, unspecified; E03.2 Hypothyroidism due to medicaments and other exogenous substances; F41.9 Anxiety disorder, unspecified; Z79.899 Other long term (current) drug therapy
CPT/HCPCS: 36415; 80048; 80053; 80202; 83605; 85025; 87040; 93971; 96365; 96375; 99291; J1650; J2270; J3370; J3490; J7030; J7060; J7512

== ENCOUNTER 2018-09-17 14:24 | Inpatient (IN) | payer MEDICARE ==
--- NOTE | 2018-09-17 15:44 | ER Document Report ---
ED Medical Screen (RME) - General Chief Complaint: Skin Problem Stated Complaint: WOUND LEGS, ARMS Time Seen by Provider: 09/17/18 15:38 Notes: 78-year-old female patient rheumatoid arthritis on methotrexate, prednisone 10 mg daily, no other immune suppressants at this time. Was seen in the office on Thursday for cellulitis to the lower legs and the upper arms. She got an unknown antibiotic injection in the office, and was prescribed Keflex. By history the redness and swelling in the lower extremities is gotten worse, and the patient complains of the arms are itching worse. I have greeted and performed a rapid initial assessment of this patient. A comprehensive ED assessment and evaluation of the patient, analysis of test results and completion of the medical decision making process will be conducted by additional ED providers. TRAVEL OUTSIDE OF THE [place] IN LAST 30 DAYS: No - Related Data Allergies/Adverse Reactions: No Known Allergies Allergy (Verified 09/03/16 10:17) Past Medical History - Social History Chew tobacco use (# tins/day): No Frequency of alcohol use: None Drug Abuse: None - Past Medical History Cardiac Medical History: Reports: Hx Hypercholesterolemia, Hx Hypertension Denies: Hx Heart Attack Pulmonary Medical History: Denies: Hx Asthma Neurological Medical History: Denies: Hx Cerebrovascular Accident, Hx Seizures Renal/ Medical History: Denies: Hx Peritoneal Dialysis GI Medical History: Denies: Hx Hepatitis, Hx Hiatal Hernia, Hx Ulcer Musculoskeltal Medical History: Reports Hx Arthritis - Osteo, Rheumatoid Psychiatric Medical History: Reports: Hx Anxiety, Hx Depression Infectious Medical History: Denies: Hx Hepatitis Past Surgical History: Reports: Hx Orthopedic Surgery - bilateral knees, Hx Tonsillectomy. Denies: Hx Hysterectomy, Hx Mastectomy, Hx Open Heart Surgery, Hx Pacemaker - Immunizations Hx Diphtheria, Pertussis, Tetanus Vaccination: No Physical Exam - Vital signs Vitals: Temp Pulse Resp BP Pulse Ox 98.2 F 69 16 147/78 H 97 09/17/18 14:48 09/17/18 14:48 09/17/18 14:48 09/17/18 14:48 09/17/18 14:48 Course - Vital Signs Vital signs: Temp Pulse Resp BP Pulse Ox 98.2 F 69 16 147/78 H 97 09/17/18 14:48 09/17/18 14:48 09/17/18 14:48 09/17/18 14:48 09/17/18 14:48 Doctor's Discharge - Discharge Referrals: IZAIAH MUNOZ MD [Primary Care Provider] - Follow up as needed
[2018-09-17 16:46] LABS: ABSOLUTE BASOPHILS # (AUTO) 0.1 10^3/uL (0.0-0.2); ABSOLUTE EOSINOPHILS # (AUTO) 0.1 10^3/uL (0.0-0.6); ABSOLUTE MONOCYTES (AUTO) 0.6 10^3/uL (0.1-1.4); ABSOLUTE NEUT (AUTO) 15.5 10^3/uL (1.7-8.2); BASOPHILS % (AUTO) 0.3 % (0-2); EOSINOPHILS % (AUTO) 0.8 % (0-6); HEMATOCRIT 47.4 % (36.0-47.0); HEMOGLOBIN 15.9 g/dL (12.0-15.5); LYMPHOCYTES % (AUTO) 5.5 % (13-45); MEAN CORPUSCULAR HEMOGLOBIN 30.7 pg (27.0-33.4); MEAN CORPUSCULAR HGB CONC 33.6 g/dL (32.0-36.0); MEAN CORPUSCULAR VOLUME 91 fl (80-97); MONOCYTES % (AUTO) 3.5 % (3-13); PLATELET COUNT 336 10^3/uL (150-450); RED BLOOD COUNT 5.19 10^6/uL (3.72-5.28); RED CELL DISTRIBUTION WIDTH 16.3 % (11.5-14.0); SEGMENTED NEUTROPHILS % (AUTO) 89.9 % (42-78); TOTAL CELLS COUNTED % (AUTO) 100 %; WHITE BLOOD COUNT 17.2 10^3/uL (4.0-10.5)
[2018-09-17 17:06] LABS: ALANINE AMINOTRANSFERASE 21 U/L (9-52); ALBUMIN 4.4 g/dL (3.5-5.0); ALKALINE PHOSPHATASE 137 U/L (38-126); ANION GAP 14 (5-19); ASPARTATE AMINO TRANSFERASE 19 U/L (14-36); BILIRUBIN,DIRECT 0.3 mg/dL (0.0-0.4); BILIRUBIN,TOTAL 0.5 mg/dL (0.2-1.3); BLOOD UREA NITROGEN 23 mg/dL (7-20); CARBON DIOXIDE 26 mmol/L (22-30); CHLORIDE 102 mmol/L (98-107); GLUCOSE 117 mg/dL (75-110); POTASSIUM 4.8 mmol/L (3.6-5.0); SODIUM 141.6 mmol/L (137-145); TOTAL PROTEIN 7.4 g/dL (6.3-8.2)
[2018-09-17] MEDS ORDERED: HYDROCODONE/ACETAMINOPHEN 5-325 MG TABLET PO ONE (17:50)
[2018-09-17] MEDS ORDERED: CETIRIZINE 10 MG TABLET PO ONE (19:21)
[2018-09-17] MEDS ORDERED: CLINDAMYCIN 600 MG/D5W RTU 600 MG/50 ML RTUPB IV ONE (19:22)
[2018-09-17] MEDS ORDERED: NORMAL SALINE 1000 ML 1,000 ML IV ONE (19:24)
--- NOTE | 2018-09-17 19:25 | ER Document Report ---
ED General - General Chief Complaint: Skin Problem Stated Complaint: WOUND LEGS, ARMS Time Seen by Provider: 09/17/18 15:38 Notes: Patient is a 78-year-old female with past medical history of rheumatoid arthritis, currently on immune suppression regimen of methotrexate and daily prednisone, history of hypertension, obesity, current smoker, presents with 4 days of a progressively worsening erythema to her distal left lower extremity. She describes the area as starting originally from when her puppy scratched her leg. There is now associated moderate to severe throbbing, aching, constant pain. She also notes a diffuse rash over her bilateral proximities, back and right lower extremity which is pleuritic in nature and has been present for roughly the same period of time. She was seen in urgent care on Thursday, given a dose of ceftriaxone, started on cephalexin but notes that her cellulitis has continued to progress. No obvious triggers for worsening of her symptoms. States that she has felt subjectively ill, hot and cold but has not recorded a fever at home. No vomiting. Has a history of cellulitis similar to this in the past. TRAVEL OUTSIDE OF THE [place] IN LAST 30 DAYS: No - Related Data Allergies/Adverse Reactions: No Known Allergies Allergy (Verified 09/17/18 20:48) Past Medical History - General Information source: Patient, Relative - Social History Smoking Status: Current Every Day Smoker Chew tobacco use (# tins/day): No Frequency of alcohol use: None Drug Abuse: None Lives with: Family Family History: Reviewed & Not Pertinent Patient has suicidal ideation: No Patient has homicidal ideation: No - Past Medical History Cardiac Medical History: Reports: Hx Hypercholesterolemia, Hx Hypertension Denies: Hx Heart Attack Pulmonary Medical History: Denies: Hx Asthma Neurological Medical History: Denies: Hx Cerebrovascular Accident, Hx Seizures Renal/ Medical History: Denies: Hx Peritoneal Dialysis GI Medical History: Denies: Hx Hepatitis, Hx Hiatal Hernia, Hx Ulcer Musculoskeletal Medical History: Reports Hx Arthritis - Osteo, Rheumatoid Psychiatric Medical History: Reports: Hx Anxiety, Hx Depression Infectious Medical History: Denies: Hx Hepatitis Past Surgical History: Reports: Hx Orthopedic Surgery - bilateral knees, Hx Tonsillectomy. Denies: Hx Hysterectomy, Hx Mastectomy, Hx Open Heart Surgery, Hx Pacemaker - Immunizations Hx Diphtheria, Pertussis, Tetanus Vaccination: No Review of Systems - Review of Systems Notes: Constitutional: Negative for fever. HENT: Negative for sore throat. Eyes: Negative for visual changes. Cardiovascular: Negative for chest pain. Respiratory: Negative for shortness of breath. Gastrointestinal: Negative for abdominal pain, vomiting or diarrhea. Genitourinary: Negative for dysuria. Musculoskeletal: Negative for back pain. Skin: Positive for rash. Neurological: Negative for headaches, weakness or numbness. 10 point ROS negative except as marked above and in HPI. Physical Exam - Vital signs Vitals: Temp Pulse Resp BP Pulse Ox 98.2 F 69 16 147/78 H 97 09/17/18 14:48 09/17/18 14:48 09/17/18 14:48 09/17/18 14:48 09/17/18 14:48 Interpretation: Hypertensive Notes: PHYSICAL EXAMINATION: GENERAL: Appears mildly ill but in no acute distress HEAD: Atraumatic, normocephalic. EYES: Pupils equal round and reactive to light, extraocular movements intact, sclera anicteric, conjunctiva are normal. ENT: nares patent, oropharynx clear without exudates. Moderately dry mucous membranes. NECK: Normal range of motion, supple without lymphadenopathy LUNGS: Breath sounds clear to auscultation bilaterally and equal. No wheezes rales or rhonchi. HEART: Regular rate and rhythm without murmurs ABDOMEN: Soft, nontender, normoactive bowel sounds. No guarding, no rebound. No masses appreciated. EXTREMITIES: Normal range of motion, no pitting or edema. No cyanosis. NEUROLOGICAL: No focal neurological deficits. Moves all extremities spontaneously and on command. PSYCH: Normal mood, normal affect. SKIN: Warm, Dry, normal turgor, on the distal left lower cavity below the level of the patella there is no erythema that extends down to the level of the ankle covering the entirety of the affected surface area. There are multiple scabbed over scratches on the mid tibial surface. There is a scattered maculopapular rash over the distal right lower extremity and the bilateral forearms as well as scattered over the back and left neck. Course - Re-evaluation Re-evalutation: 09/17/18 19:22 Patient presents with what appears to be a cellulitis of her distal left lower extremity originating from several puncture wounds from a dog scratch. Patient has already been on appropriate antibiotics as an outpatient including cephalexin and a dose of ceftriaxone but yet has had progression of the cellulitis and now with associated constitutional symptoms. She is immune suppressed with methotrexate as well as 10 mg of daily prednisone although I did not take her methotrexate dose this week. She also has a diffuse, maculopapular rash scattered across her back, upper arms, left side of her neck and right lower extremity that is pruritic. This appears to be either histaminergic reaction versus possible effects from not taking her methotrexate related to underlying rheumatoid arthritis. It does seem quite distinct from the cellulitis of her left lower extremity. Patient is clear to state that these lesions were present before starting cephalexin as she has taken similar antibiotics in the past without any allergic reaction. Given her immune suppression, failure of outpatient antibiotics, advanced age, and she will require hospitalization. I started her on clindamycin. Will start cetirizine for possible allergic component. Will discuss with hospitalist for admission. - Vital Signs Vital signs: Temp Pulse Resp BP Pulse Ox 98.6 F 60 17 145/63 H 100 09/17/18 23:27 09/17/18 23:27 09/17/18 23:27 09/17/18 23:27 09/17/18 23:27 - Laboratory Result Diagrams: 09/17/18 16:29 09/17/18 16:29 Laboratory results interpreted by me: 09/17/18 09/17/18 16:29 16:29 WBC 17.2 H Hgb 15.9 H Hct 47.4 H RDW 16.3 H Seg Neutrophils % 89.9 H Lymphocytes % 5.5 L Absolute Neutrophils 15.5 H BUN 23 H Glucose 117 H Alkaline Phosphatase 137 H Discharge - Discharge Clinical Impression: Cellulitis of left lower extremity, Pruritic rash Leukocytosis Qualifiers: Leukocytosis type: unspecified Qualified Code(s): D72.829 - Elevated white blood cell count, unspecified Condition: Fair Disposition: ADMITTED INPATIENT Admitting Provider: Hospitalist Unit Admitted: Medical Floor
[2018-09-17] MEDS ORDERED: MAGNESIUM HYDROXIDE SUSP 30 ML UDCUP PO PRN (19:47)
[2018-09-17] MEDS ORDERED: ACETAMINOPHEN 325 MG TABLET PO PRN (19:47)
[2018-09-17] MEDS ORDERED: HYDROCODONE PO PRN (19:50)
[2018-09-17] MEDS ORDERED: IBUPROFEN PO PRN (19:50)
[2018-09-17] MEDS ORDERED: NORMAL SALINE 1000 ML 1,000 ML IV SCH (20:00)
[2018-09-17] MEDS ORDERED: DIPHENHYDRAMINE HCL 50 MG/ML VIAL IV PRN (21:47)
[2018-09-17] MEDS ORDERED: (PENDING PHARMACY ID) (Valsartan [Diovan] 320 MG) PO SCH (22:00)
[2018-09-17] MEDS: LORAZEPAM 1 MG TABLET PO PRN (22:37)
[2018-09-17] MEDS: DULOXETINE HCL 30 MG CAPSULE.DR PO SCH (22:37)
[2018-09-17] MEDS: HEPARIN SOD (PORCINE) 5,000 UNIT/ML 1 ML SYRINGE SUBCUT SCH (22:38)
[2018-09-17] MEDS: OXYBUTYNIN CHLORIDE 5 MG TABLET PO SCH (22:38)
[2018-09-17] MEDS: DIPHENHYDRAMINE HCL 25 MG CAPSULE PO PRN (22:38)
[2018-09-17] MEDS: AMLODIPINE BESYLATE 10 MG TABLET PO SCH (22:39)
[2018-09-17] MEDS: CLINDAMYCIN 900 MG/D5W RTU 900 MG/50 ML RTUPB IV SCH (22:46)
[2018-09-18] MEDS: DIPHENHYDRAMINE HCL 25 MG CAPSULE PO PRN (03:26)
[2018-09-18] MEDS: CLINDAMYCIN 900 MG/D5W RTU 900 MG/50 ML RTUPB IV SCH ×3 (05:19→21:20)
[2018-09-18] MEDS: HEPARIN SOD (PORCINE) 5,000 UNIT/ML 1 ML SYRINGE SUBCUT SCH ×3 (05:20→21:21)
--- NOTE | 2018-09-18 06:02 | PDOC H&P ---
History of Present Illness Admission Date/PCP: 09/17/18 19:50 IZAIAH TAMMY Patient complains of: Left leg pain, rash and fever History of Present Illness: BOOM OROPEZA is a 78 year old female with a past medical history of hypertension, anxiety and rheumatoid arthritis, who discontinued methotrexate 6 days ago for pending right carpal tunnel surgery. She presents with 4 days of worsening erythema and pain to her left lower extremity she suspected a scratch from her puppy but has now developed a red pruritic rash over the lower extremity bilaterally and back. She was seen in an urgent care and started on an IM dose of Rocephin and Keflex without significant improvement. In the emergency room she is found to have leukocytosis of 17,000, started on IV clindamycin and referred to the hospitalist for admission. Past Medical History Cardiac Medical History: Reports: Hyperlipidema, Hypertension Denies: Myocardial Infarction Pulmonary Medical History: Denies: Asthma Neurological Medical History: Denies: Seizures GI Medical History: Denies: Hepatitis, Hiatal Hernia Musculoskeltal Medical History: Reports: Arthritis - Osteo, Rheumatoid Psychiatric Medical History: Reports: Depression, General Anxiety Disorder Hematology: Denies: Anemia, Sickle Cell Disease Past Surgical History Past Surgical History: Reports: Orthopedic Surgery - bilateral knees, Tonsillectomy Denies: Amputation, Hysterectomy, Mastectomy, Pacemaker Social History Information Source: Patient, Relative Lives with: Family Smoking Status: Current Every Day Smoker Frequency of Alcohol Use: None Hx Recreational Drug Use: No Drugs: None Hx Prescription Drug Abuse: No - Advance Directive Resuscitation Status: Full Code Family History Family History: Other - Denies Parental Family History Reviewed: Yes Children Family History Reviewed: Yes Sibling(s) Family History Reviewed.: Yes Medication/Allergy Home Medications: Duloxetine HCl [Cymbalta] 60 mg PO Q12 03/03/17 Folic Acid [Folvite 1 mg Tablet] 3 mg PO DAILY 03/03/17 Hydrocodone/Ibuprofen [Hydrocodone-Ibuprofen 7.5-200] 1 tab PO TIDP PRN Levothyroxine Sodium [Synthroid 0.075 mg Tablet] 0.075 mg PO QAM 03/03/17 Lorazepam [Ativan 1 mg Tablet] 1 mg PO TIDP PRN 03/03/17 Methotrexate Sodium [Rheumatrex 2.5 mg Tablet] 10 mg PO DAO@1700 03/03/17 Prednisone [Deltasone 5 mg Tablet] 10 mg PO DAILY 03/03/17 Aspirin [Ecotrin 81 mg EC Tablet] 81 mg PO DAILY 09/17/18 Losartan Potassium [Cozaar 100 mg Tablet] 100 mg PO DAILY 09/17/18 Meloxicam [Mobic] 15 mg PO DAILY 09/17/18 Oxybutynin Chloride [Oxybutynin Chloride ER] 10 mg PO QHS 09/17/18 Potassium Chloride [Klor-Con M10] 20 meq PO DAILY 09/17/18 Allergies/Adverse Reactions: No Known Allergies Allergy (Verified 09/17/18 20:48) Review of Systems Constitutional: ABSENT: chills, fever(s), headache(s), weight gain, weight loss Eyes: ABSENT: visual disturbances Ears: ABSENT: hearing changes Cardiovascular: ABSENT: chest pain, dyspnea on exertion, edema, orthropnea, palpitations Respiratory: ABSENT: cough, hemoptysis Gastrointestinal: ABSENT: abdominal pain, constipation, diarrhea, hematemesis, hematochezia, nausea, vomiting Genitourinary: ABSENT: dysuria, hematuria Musculoskeletal: ABSENT: joint swelling Integumentary: ABSENT: rash, wounds Neurological: ABSENT: abnormal gait, abnormal speech, confusion, dizziness, focal weakness, syncope Psychiatric: ABSENT: anxiety, depression, homidical ideation, suicidal ideation Endocrine: ABSENT: cold intolerance, heat intolerance, polydipsia, polyuria Hematologic/Lymphatic: ABSENT: easy bleeding, easy bruising Physical Exam Vital Signs: Temp Pulse Resp BP Pulse Ox 98.6 F 60 17 145/63 H 100 09/17/18 23:27 09/18/18 01:00 09/17/18 23:27 09/17/18 23:27 09/17/18 23:27 Intake & Output 09/16/18 09/17/18 09/18/18 11:59 11:59 11:59 Intake Total 1400 Balance 1400 Weight 79.8 kg General appearance: PRESENT: cooperative, hard of hearing, mild distress. ABSENT: disheveled Head exam: PRESENT: atraumatic, normocephalic Eye exam: PRESENT: conjunctiva pink, EOMI, PERRLA. ABSENT: scleral icterus Ear exam: PRESENT: normal external ear exam Mouth exam: PRESENT: moist, tongue midline Neck exam: ABSENT: carotid bruit, JVD, lymphadenopathy, thyromegaly Respiratory exam: PRESENT: clear to auscultation ollie. ABSENT: rales, rhonchi, wheezes Cardiovascular exam: PRESENT: RRR. ABSENT: diastolic murmur, rubs, systolic murmur Pulses: PRESENT: normal dorsalis pedis pul Vascular exam: PRESENT: normal capillary refill GI/Abdominal exam: PRESENT: normal bowel sounds, soft. ABSENT: distended, guarding, mass, organolmegaly, rebound, tenderness Rectal exam: PRESENT: deferred Extremities exam: PRESENT: full ROM, tenderness, +1 edema Musculoskeletal exam: PRESENT: full ROM Neurological exam: PRESENT: alert, awake, oriented to person, oriented to place , oriented to time, oriented to situation, CN II-XII grossly intact. ABSENT: motor sensory deficit Psychiatric exam: PRESENT: anxious, normal mood. ABSENT: homicidal ideation, suicidal ideation Skin exam: PRESENT: dry, erythema, intact, rash. ABSENT: urticaria, vesicles Adult Front & Back Image: 1 - +1 edema, circumferential erythema 2 - Macular papular pruritic rash Assessment & Plan - Diagnosis (1) Cellulitis of left lower extremity Is this a current diagnosis for this admission?: Yes Plan: Not entirely clear if related to discontinuation of methotrexate with RA flare or actual cellulitis, trial empiric antibiotics, follow-up blood culture and CBC (2) Pruritic rash Is this a current diagnosis for this admission?: Yes Plan: Symptomatic management, RA flare versus medication (3) Rheumatoid arthritis Qualifiers: Rheumatoid arthritis location: multiple sites Is this a current diagnosis for this admission?: Yes Plan: Continue to hold methotrexate, double dose of prednisone of 5 mg to 10, follow- up acute phase reactants. - Time Time Spent: 50 to 70 Minutes - Inpatient Certification Medical Necessity: Need Close Monitoring Due to Risk of Patient Decompensation
[2018-09-18 06:03] LABS: ABSOLUTE BASOPHILS # (AUTO) 0.1 10^3/uL (0.0-0.2); ABSOLUTE EOSINOPHILS # (AUTO) 0.5 10^3/uL (0.0-0.6); ABSOLUTE LYMPHOCYTES (AUTO) 2.3 10^3/uL (0.5-4.7); ABSOLUTE MONOCYTES (AUTO) 1.1 10^3/uL (0.1-1.4); ABSOLUTE NEUT (AUTO) 10.7 10^3/uL (1.7-8.2); BASOPHILS % (AUTO) 0.9 % (0-2); EOSINOPHILS % (AUTO) 3.4 % (0-6); HEMATOCRIT 42.5 % (36.0-47.0); HEMOGLOBIN 14.1 g/dL (12.0-15.5); LYMPHOCYTES % (AUTO) 15.6 % (13-45); MEAN CORPUSCULAR HEMOGLOBIN 30.4 pg (27.0-33.4); MEAN CORPUSCULAR HGB CONC 33.3 g/dL (32.0-36.0); MEAN CORPUSCULAR VOLUME 91 fl (80-97); MONOCYTES % (AUTO) 7.8 % (3-13); PLATELET COUNT 267 10^3/uL (150-450); RED BLOOD COUNT 4.65 10^6/uL (3.72-5.28); RED CELL DISTRIBUTION WIDTH 16.5 % (11.5-14.0); SEGMENTED NEUTROPHILS % (AUTO) 72.3 % (42-78); TOTAL CELLS COUNTED % (AUTO) 100 %; WHITE BLOOD COUNT 14.8 10^3/uL (4.0-10.5)
[2018-09-18 06:21] LABS: ANION GAP 8 (5-19); BLOOD UREA NITROGEN 21 mg/dL (7-20); CALCIUM 8.7 mg/dL (8.4-10.2); CARBON DIOXIDE 25 mmol/L (22-30); CHLORIDE 109 mmol/L (98-107); GLUCOSE 94 mg/dL (75-110)
[2018-09-18] MEDS: DULOXETINE HCL 30 MG CAPSULE.DR PO SCH ×2 (09:40→21:20)
[2018-09-18] MEDS: LOSARTAN POTASSIUM 50 MG TABLET PO SCH (09:40)
[2018-09-18] MEDS: ASPIRIN 81 MG TABLET, ENT COATED PO SCH (09:41)
[2018-09-18] MEDS: FOLIC ACID 1 MG TABLET PO SCH (09:41)
[2018-09-18] MEDS ORDERED: PREDNISONE 5 MG TABLET PO SCH (10:00)
[2018-09-18] MEDS: LORAZEPAM 1 MG TABLET PO PRN ×2 (11:56→22:54)
[2018-09-18] MEDS: LEVOTHYROXINE SODIUM 0.075 MG TABLET PO SCH (13:29)
[2018-09-18] MEDS: HYDROCODONE/ACETAMINOPHEN 5-325 MG TABLET PO PRN (13:30)
[2018-09-18] MEDS ORDERED: PREDNISONE 10 MG TABLET PO ONE ×2 (14:56→15:30)
--- NOTE | 2018-09-18 15:00 | PDOC PROGRESS REPORT ---
Subjective Progress Note for:: 09/18/18 Subjective:: The patient is a 78-year-old female with a past medical history of hypertension , hyperlipidemia, anxiety, and rheumatoid arthritis who was admitted 09/17/2018 for bilateral lower extremity cellulitis. The patient was seen on morning rounds. She is found sitting up to the edge of the bed comfortably on room air. She reports continued pruritus to her lower extremities and posterior right shoulder, especially to the edges of the erythema. She states that the erythema appears to be progressing; now reaching just distal to her knees but not yet circumferential. She reports that she had a dog scratch to the alonso of her left lower extremity but has no known injuries to her right lower extremity or to her shoulder. She denies exposure to new foods or medications, however, does note that she used a new laundry detergent once in the previous week. She denies history of lupus, psoriasis, or skin disruptions with previous rheumatoid arthritis flares. She denies fever, chills, chest pain, palpitations, dyspnea, orthopnea, abdominal pain, nausea vomiting and diarrhea. She has no new questions or concerns. No concerns per nursing. Reason For Visit: LEFT LEG CELLULITIS, RA Physical Exam Vital Signs: Temp Pulse Resp BP Pulse Ox 98.0 F 95 16 147/58 H 97 09/18/18 12:25 09/18/18 14:00 09/18/18 12:25 09/18/18 12:25 09/18/18 12:25 Intake & Output 09/17/18 09/18/18 09/19/18 06:59 06:59 06:59 Intake Total 1450 Balance 1450 Weight 79.8 kg General appearance: PRESENT: no acute distress, morbidly obese, well-developed, well-nourished Head exam: PRESENT: atraumatic, normocephalic Eye exam: PRESENT: conjunctiva pink, EOMI, PERRLA. ABSENT: scleral icterus Ear exam: PRESENT: normal external ear exam Mouth exam: PRESENT: moist, tongue midline Neck exam: ABSENT: carotid bruit, JVD, lymphadenopathy, thyromegaly Respiratory exam: PRESENT: clear to auscultation ollie, symmetrical, unlabored. ABSENT: rales, rhonchi, wheezes Cardiovascular exam: PRESENT: RRR, +S1, +S2. ABSENT: diastolic murmur, rubs, systolic murmur Pulses: PRESENT: normal dorsalis pedis pul Vascular exam: PRESENT: normal capillary refill GI/Abdominal exam: PRESENT: normal bowel sounds, soft. ABSENT: distended, guarding, mass, organolmegaly, rebound, tenderness Rectal exam: PRESENT: deferred Extremities exam: PRESENT: full ROM, +1 edema - BLE. ABSENT: calf tenderness, clubbing, pedal edema Neurological exam: PRESENT: alert, awake, oriented to person, oriented to place , oriented to time, oriented to situation, CN II-XII grossly intact. ABSENT: motor sensory deficit Psychiatric exam: PRESENT: appropriate affect, normal mood. ABSENT: homicidal ideation, suicidal ideation Skin exam: PRESENT: dry, erythema - anterior LLE from just distal of knee extending to ankle, medial/anterior RLE to the mid lower leg (well circumscribed ), posterior right shoulder extending midway down R upper arm., rash, warm. ABSENT: cyanosis Results Laboratory Results: 09/18/18 05:30 09/18/18 05:30 09/18/18 09/18/18 05:30 05:30 WBC 14.8 H RBC 4.65 Hgb 14.1 Hct 42.5 MCV 91 MCH 30.4 MCHC 33.3 RDW 16.5 H Plt Count 267 Seg Neutrophils % 72.3 Lymphocytes % 15.6 Monocytes % 7.8 Eosinophils % 3.4 Basophils % 0.9 Absolute Neutrophils 10.7 H Absolute Lymphocytes 2.3 Absolute Monocytes 1.1 Absolute Eosinophils 0.5 Absolute Basophils 0.1 Sodium 142.0 Potassium 4.0 Chloride 109 H Carbon Dioxide 25 Anion Gap 8 BUN 21 H Creatinine 0.71 Est GFR ( Amer) > 60 Est GFR (Non-Af Amer) > 60 Glucose 94 Calcium 8.7 Assessment & Plan - Diagnosis (1) Cellulitis Qualifiers: Site of cellulitis of extremity: lower extremity Laterality: unspecified laterality Is this a current diagnosis for this admission?: Yes Plan: Not entirely clear if the patient has developed a bilateral lower extremity cellulitis (potentially secondary to peripheral vascular disease the patient is morbidly obese with edematous lower extremities with recent abrasions to her shins from a puppy), rheumatoid arthritis flare (less likely as Sed Rate is normal), or dermatitis related to new laundry detergent. The patient does endorse fatigue but denies fever, chills, malaise. WBCs elevated to 17k upon admission. Blood cultures pending. She has been admitted to the medical floor on continuous cardiac telemetry. She has been empirically placed on IV clindamycin. (2) Leukocytosis Qualifiers: Leukocytosis type: unspecified Qualified Code(s): D72.829 - Elevated white blood cell count, unspecified Is this a current diagnosis for this admission?: Yes Plan: Trending down; 17.2--> 14.8. Secondary to #1 Pt remains afebrile. Cultures and antibiotics as above. Daily CBC. (3) Pruritic rash Is this a current diagnosis for this admission?: Yes Plan: Unclear etiology; cellulitis versus atopic dermatitis. Vasculitis ruled out; sed rate is normal. Cultures and antibiotics as above. Patient is placed on H2 melissa. Benadryl as needed. Patient is chronically on prednisone 10 mg daily; increase to 20 mg daily. Consider further increase. (4) Rheumatoid arthritis Qualifiers: Rheumatoid arthritis location: multiple sites Is this a current diagnosis for this admission?: Yes Plan: Patient chronically takes prednisone 10 mg daily; have increased to 20 mg daily. (5) HTN (hypertension) Qualifiers: Hypertension type: essential hypertension Qualified Code(s): I10 - Essential (primary) hypertension Is this a current diagnosis for this admission?: Yes Plan: Patient's home medication regimen is continued. (6) Hypothyroidism Qualifiers: Hypothyroidism type: due to non-medication exogenous substances Qualified Code(s): E03.2 - Hypothyroidism due to medicaments and other exogenous substances Is this a current diagnosis for this admission?: Yes Plan: Patient's home dose of levothyroxine is continued. (7) Chronic pain Is this a current diagnosis for this admission?: Yes Plan: The patient has chronic pain related to rheumatoid and osteo-arthritis. Her home medication regimen is continued: Mobic 15 mg daily and hydrocodone as needed. The patient's daughter has reported that the patient has had multiple falls at home recently; perhaps related to pain, and rotatory dysfunction related to arthritis, or medications. We will ask physical therapy to evaluate and make recommendations. Discharge planning is consulted. - Time Time Spent with patient: 25-34 minutes Medications reviewed and adjusted accordingly: Yes
[2018-09-18] MEDS: PREDNISONE 5 MG TABLET PO SCH (15:13)
[2018-09-18] MEDS: FAMOTIDINE 20 MG TABLET PO SCH (21:20)
[2018-09-18] MEDS: AMLODIPINE BESYLATE 10 MG TABLET PO SCH (21:20)
[2018-09-18] MEDS: OXYBUTYNIN CHLORIDE 5 MG TABLET PO SCH (21:21)
[2018-09-19 05:43] LABS: ANION GAP 12 (5-19); BLOOD UREA NITROGEN 18 mg/dL (7-20); CALCIUM 9.3 mg/dL (8.4-10.2); CARBON DIOXIDE 24 mmol/L (22-30); CHLORIDE 107 mmol/L (98-107); GLUCOSE 86 mg/dL (75-110); HEMATOCRIT 41.5 % (36.0-47.0); HEMOGLOBIN 13.9 g/dL (12.0-15.5); MEAN CORPUSCULAR HEMOGLOBIN 30.4 pg (27.0-33.4); MEAN CORPUSCULAR HGB CONC 33.5 g/dL (32.0-36.0); MEAN CORPUSCULAR VOLUME 91 fl (80-97); PLATELET COUNT 271 10^3/uL (150-450); POTASSIUM 4.1 mmol/L (3.6-5.0); RED BLOOD COUNT 4.57 10^6/uL (3.72-5.28); RED CELL DISTRIBUTION WIDTH 16.3 % (11.5-14.0); SODIUM 142.5 mmol/L (137-145); WHITE BLOOD COUNT 12.7 10^3/uL (4.0-10.5)
[2018-09-19] MEDS: CLINDAMYCIN 900 MG/D5W RTU 900 MG/50 ML RTUPB IV SCH (06:28)
[2018-09-19] MEDS: HEPARIN SOD (PORCINE) 5,000 UNIT/ML 1 ML SYRINGE SUBCUT SCH ×3 (06:28→22:10)
[2018-09-19] MEDS: LOSARTAN POTASSIUM 50 MG TABLET PO SCH (10:35)
[2018-09-19] MEDS: FOLIC ACID 1 MG TABLET PO SCH (10:36)
[2018-09-19] MEDS: PREDNISONE 5 MG TABLET PO SCH (10:36)
[2018-09-19] MEDS: HYDROCODONE/ACETAMINOPHEN 5-325 MG TABLET PO PRN (10:36)
[2018-09-19] MEDS: ASPIRIN 81 MG TABLET, ENT COATED PO SCH (10:36)
[2018-09-19] MEDS: FAMOTIDINE 20 MG TABLET PO SCH ×2 (10:36→22:10)
[2018-09-19] MEDS: DULOXETINE HCL 30 MG CAPSULE.DR PO SCH ×2 (10:36→22:10)
[2018-09-19] MEDS: LORAZEPAM 1 MG TABLET PO PRN (10:37)
--- NOTE | 2018-09-19 11:20 | PDOC PROGRESS REPORT ---
Subjective Progress Note for:: 09/19/18 Subjective:: The patient is a 78-year-old female with a past medical history of hypertension , hyperlipidemia, anxiety, and rheumatoid arthritis who was admitted 09/17/2018 for bilateral lower extremity cellulitis. The patient was seen on morning rounds. She is found sitting up to the recliner comfortably on room air. She reports her itching has resolved. She is concerned that the erythema has not receded, however, it is clearly less intense in color. She does complain that she did not sleep well overnight and so is feeling fatigued this morning. She denies fever, chills, chest pain, palpitations, dyspnea, orthopnea, abdominal pain, nausea vomiting and diarrhea. She has no new questions or concerns. No concerns per nursing. Reason For Visit: LEFT LEG CELLULITIS, RA Physical Exam Vital Signs: Temp Pulse Resp BP Pulse Ox 98.2 F 71 18 141/88 H 98 09/19/18 08:30 09/19/18 08:30 09/19/18 08:30 09/19/18 08:30 09/19/18 08:30 Intake & Output 09/18/18 09/19/18 09/20/18 06:59 06:59 06:59 Intake Total 1450 1542 473 Output Total 1925 900 Balance 1450 383 -427 Weight 79.8 kg 78.5 kg General appearance: PRESENT: no acute distress, cooperative, morbidly obese, well-developed, well-nourished Head exam: PRESENT: atraumatic, normocephalic Eye exam: PRESENT: conjunctiva pink, EOMI, PERRLA. ABSENT: scleral icterus Ear exam: PRESENT: normal external ear exam Mouth exam: PRESENT: moist, tongue midline Neck exam: ABSENT: carotid bruit, JVD, lymphadenopathy, thyromegaly Respiratory exam: PRESENT: clear to auscultation ollie, symmetrical, unlabored. ABSENT: rales, rhonchi, wheezes Cardiovascular exam: PRESENT: RRR, +S1, +S2. ABSENT: diastolic murmur, rubs, systolic murmur Pulses: PRESENT: normal dorsalis pedis pul Vascular exam: PRESENT: normal capillary refill GI/Abdominal exam: PRESENT: normal bowel sounds, soft. ABSENT: distended, guarding, mass, organolmegaly, rebound, tenderness Rectal exam: PRESENT: deferred Extremities exam: PRESENT: full ROM, +1 edema - BLE. ABSENT: calf tenderness, clubbing, pedal edema Neurological exam: PRESENT: alert, awake, oriented to person, oriented to place , oriented to time, oriented to situation, CN II-XII grossly intact. ABSENT: motor sensory deficit Psychiatric exam: PRESENT: appropriate affect, normal mood. ABSENT: homicidal ideation, suicidal ideation Skin exam: PRESENT: dry, erythema - anterior LLE from just distal of knee extending to ankle, medial/anterior RLE to the mid lower leg (well circumscribed ), posterior right shoulder extending midway down R upper arm. Decreased intensity of color; especially to BUE., intact, warm. ABSENT: cyanosis, rash Results Laboratory Results: 09/19/18 04:57 09/19/18 04:57 09/19/18 09/19/18 04:57 04:57 WBC 12.7 H RBC 4.57 Hgb 13.9 Hct 41.5 MCV 91 MCH 30.4 MCHC 33.5 RDW 16.3 H Plt Count 271 Sodium 142.5 Potassium 4.1 Chloride 107 Carbon Dioxide 24 Anion Gap 12 BUN 18 Creatinine 0.63 Est GFR ( Amer) > 60 Est GFR (Non-Af Amer) > 60 Glucose 86 Calcium 9.3 Assessment & Plan - Diagnosis (1) Cellulitis Qualifiers: Site of cellulitis of extremity: lower extremity Laterality: unspecified laterality Is this a current diagnosis for this admission?: Yes Plan: Improved. Intensity of color has lessened, pruritus has resolved, leukocytosis trending down (17.2--> 14.8--> 12.7) Not entirely clear if the patient has developed a bilateral lower extremity cellulitis (potentially secondary to peripheral vascular disease the patient is morbidly obese with edematous lower extremities with recent abrasions to her shins from a puppy), rheumatoid arthritis flare (less likely as Sed Rate is normal), or dermatitis related to new laundry detergent. The patient does endorse fatigue but denies fever, chills, malaise. Blood cultures negative at 24 hours. She has been admitted to the medical floor on continuous cardiac telemetry. She has been empirically placed on IV clindamycin; will transition to p.o. today in anticipation of possible d/c tomorrow. (2) Leukocytosis Qualifiers: Leukocytosis type: unspecified Qualified Code(s): D72.829 - Elevated white blood cell count, unspecified Is this a current diagnosis for this admission?: Yes Plan: Trending down; 17.2--> 14.8--> 12.7. Secondary to #1 Pt remains afebrile. Cultures and antibiotics as above. Daily CBC. (3) Pruritic rash Is this a current diagnosis for this admission?: Yes Plan: Improved. Unclear etiology; cellulitis versus atopic dermatitis. Vasculitis ruled out; sed rate is normal. Cultures and antibiotics as above. Patient is placed on H2 melissa. Benadryl as needed. Patient is chronically on prednisone 10 mg daily; increase to 20 mg daily. (4) Rheumatoid arthritis Qualifiers: Rheumatoid arthritis location: multiple sites Is this a current diagnosis for this admission?: Yes Plan: Patient chronically takes prednisone 10 mg daily; have increased to 20 mg daily. Holding methotrexate; pt reports she was instructed to stop 1 week ago for upcoming carpel tunnel repair. (5) HTN (hypertension) Qualifiers: Hypertension type: essential hypertension Qualified Code(s): I10 - Essential (primary) hypertension Is this a current diagnosis for this admission?: Yes Plan: Acceptable for age. Patient's home medication regimen is continued. (6) Hypothyroidism Qualifiers: Hypothyroidism type: due to non-medication exogenous substances Qualified Code(s): E03.2 - Hypothyroidism due to medicaments and other exogenous substances Is this a current diagnosis for this admission?: Yes Plan: Patient's home dose of levothyroxine is continued. (7) Chronic pain Is this a current diagnosis for this admission?: Yes Plan: The patient has chronic pain related to rheumatoid and osteo-arthritis. Her home medication regimen is continued: Mobic 15 mg daily and hydrocodone as needed. The patient's daughter has reported that the patient has had multiple falls at home recently; perhaps related to pain, and rotatory dysfunction related to arthritis, or medications. We will ask physical therapy to evaluate and make recommendations. Discharge planning is consulted. - Time Time Spent with patient: 15-24 minutes Medications reviewed and adjusted accordingly: Yes Anticipated discharge: Home with Homehealth - w/ PT services vs [facility]/SNF Within: within 24 hours
[2018-09-19] MEDS: MELOXICAM 15 MG TABLET PO SCH (13:48)
[2018-09-19] MEDS: LEVOTHYROXINE SODIUM 0.075 MG TABLET PO SCH (13:48)
[2018-09-19] MEDS: CLINDAMYCIN HCL 150 MG CAPSULE PO SCH ×3 (13:48→23:06)
[2018-09-19] MEDS: AMLODIPINE BESYLATE 10 MG TABLET PO SCH (22:10)
[2018-09-19] MEDS: OXYBUTYNIN CHLORIDE 5 MG TABLET PO SCH (22:13)
[2018-09-20 04:42] LABS: HEMATOCRIT 42.5 % (36.0-47.0); HEMOGLOBIN 14.4 g/dL (12.0-15.5); MEAN CORPUSCULAR HEMOGLOBIN 30.4 pg (27.0-33.4); MEAN CORPUSCULAR HGB CONC 33.9 g/dL (32.0-36.0); MEAN CORPUSCULAR VOLUME 90 fl (80-97); PLATELET COUNT 280 10^3/uL (150-450); RED BLOOD COUNT 4.74 10^6/uL (3.72-5.28); RED CELL DISTRIBUTION WIDTH 16.2 % (11.5-14.0); WHITE BLOOD COUNT 14.5 10^3/uL (4.0-10.5)
[2018-09-20] MEDS: CLINDAMYCIN HCL 150 MG CAPSULE PO SCH ×3 (06:38→17:42)
[2018-09-20] MEDS: HEPARIN SOD (PORCINE) 5,000 UNIT/ML 1 ML SYRINGE SUBCUT SCH ×3 (06:38→22:46)
[2018-09-20] MEDS: HYDROCODONE/ACETAMINOPHEN 5-325 MG TABLET PO PRN (07:57)
[2018-09-20] MEDS: LOSARTAN POTASSIUM 50 MG TABLET PO SCH (09:13)
[2018-09-20] MEDS: DULOXETINE HCL 30 MG CAPSULE.DR PO SCH ×2 (09:13→22:47)
[2018-09-20] MEDS: PREDNISONE 5 MG TABLET PO SCH (09:14)
[2018-09-20] MEDS: MELOXICAM 15 MG TABLET PO SCH (09:15)
[2018-09-20] MEDS: FOLIC ACID 1 MG TABLET PO SCH (09:15)
[2018-09-20] MEDS: ASPIRIN 81 MG TABLET, ENT COATED PO SCH (09:15)
[2018-09-20] MEDS: LEVOTHYROXINE SODIUM 0.075 MG TABLET PO SCH (09:15)
[2018-09-20] MEDS: FAMOTIDINE 20 MG TABLET PO SCH ×2 (09:15→22:47)
--- NOTE | 2018-09-20 14:47 | PDOC PROGRESS REPORT ---
Subjective Progress Note for:: 09/20/18 Subjective:: The patient is a 78-year-old female with a past medical history of hypertension , hyperlipidemia, anxiety, and rheumatoid arthritis who was admitted 09/17/2018 for bilateral lower extremity cellulitis. The patient was seen on morning rounds. She is found sitting up in bed comfortably on room air. She reports that, overall, she is feeling better. She is concerned that the erythema is still present but does confirm that her legs are no longer tender and that the itching has resolved. She denies fever, chills, chest pain, palpitations, dyspnea, orthopnea, abdominal pain, nausea vomiting and diarrhea. She has no new questions or concerns. No concerns per nursing. Reason For Visit: LEFT LEG CELLULITIS, RA Physical Exam Vital Signs: Temp Pulse Resp BP Pulse Ox 98.7 F 74 18 125/67 97 09/20/18 13:11 09/20/18 13:11 09/20/18 13:11 09/20/18 13:11 09/20/18 13:11 Intake & Output 09/19/18 09/20/18 09/21/18 06:59 06:59 06:59 Intake Total 1542 1779 Output Total 1925 3300 Balance -383 -1521 Weight 78.5 kg 76.5 kg General appearance: PRESENT: no acute distress, cooperative, morbidly obese, well-developed, well-nourished Head exam: PRESENT: atraumatic, normocephalic Eye exam: PRESENT: conjunctiva pink, EOMI, PERRLA. ABSENT: scleral icterus Ear exam: PRESENT: normal external ear exam Mouth exam: PRESENT: moist, tongue midline Neck exam: ABSENT: carotid bruit, JVD, lymphadenopathy, thyromegaly Respiratory exam: PRESENT: clear to auscultation ollie, symmetrical, unlabored. ABSENT: rales, rhonchi, wheezes Cardiovascular exam: PRESENT: RRR. ABSENT: diastolic murmur, rubs, systolic murmur Pulses: PRESENT: normal dorsalis pedis pul Vascular exam: PRESENT: normal capillary refill GI/Abdominal exam: PRESENT: normal bowel sounds, soft. ABSENT: distended, guarding, mass, organolmegaly, rebound, tenderness Rectal exam: PRESENT: deferred Extremities exam: PRESENT: full ROM. ABSENT: calf tenderness, clubbing, pedal edema Neurological exam: PRESENT: alert, awake, oriented to person, oriented to place , oriented to time, oriented to situation, CN II-XII grossly intact. ABSENT: motor sensory deficit Psychiatric exam: PRESENT: appropriate affect, normal mood. ABSENT: homicidal ideation, suicidal ideation Skin exam: PRESENT: dry, erythema - anterior LLE from just distal of knee extending to ankle, medial/anterior RLE to the mid lower leg (well circumscribed ); decreased intensity of color. Erythema to BUE has resolved., intact, warm. ABSENT: cyanosis, rash Results Laboratory Results: 09/20/18 04:21 09/19/18 04:57 09/20/18 04:21 WBC 14.5 H RBC 4.74 Hgb 14.4 Hct 42.5 MCV 90 MCH 30.4 MCHC 33.9 RDW 16.2 H Plt Count 280 Assessment & Plan - Diagnosis (1) Cellulitis Qualifiers: Site of cellulitis of extremity: lower extremity Laterality: unspecified laterality Is this a current diagnosis for this admission?: Yes Plan: Continued improvement. Clinically improved, pruritus has resolved, leukocytosis trending down, remains afebrile. Not entirely clear if the patient has developed a bilateral lower extremity cellulitis (potentially secondary to peripheral vascular disease the patient is morbidly obese with edematous lower extremities with recent abrasions to her shins from a puppy), rheumatoid arthritis flare (less likely as Sed Rate is normal), or dermatitis related to new laundry detergent. The patient does endorse fatigue but denies fever, chills, malaise. Blood cultures negative at 48 hours. She has been admitted to the medical floor on continuous cardiac telemetry. Continue p.o clindamycin YOMI salazar, elevate BLE (2) Leukocytosis Qualifiers: Leukocytosis type: unspecified Qualified Code(s): D72.829 - Elevated white blood cell count, unspecified Is this a current diagnosis for this admission?: Yes Plan: Trending down. Secondary to #1 Pt remains afebrile. Cultures and antibiotics as above. (3) Pruritic rash Is this a current diagnosis for this admission?: Yes Plan: Improved. Unclear etiology; cellulitis versus atopic dermatitis. Vasculitis ruled out; sed rate is normal. Cultures and antibiotics as above. Patient is placed on H2 melissa. Benadryl as needed. Patient is chronically on prednisone 10 mg daily; increase to 20 mg daily. (4) Rheumatoid arthritis Qualifiers: Rheumatoid arthritis location: multiple sites Is this a current diagnosis for this admission?: Yes Plan: Patient chronically takes prednisone 10 mg daily; have increased to 20 mg daily. Holding methotrexate; pt reports she was instructed to stop 1 week ago for upcoming carpel tunnel repair. (5) HTN (hypertension) Qualifiers: Hypertension type: essential hypertension Qualified Code(s): I10 - Essential (primary) hypertension Is this a current diagnosis for this admission?: Yes Plan: Acceptable for age. Patient's home medication regimen is continued. (6) Hypothyroidism Qualifiers: Hypothyroidism type: due to non-medication exogenous substances Qualified Code(s): E03.2 - Hypothyroidism due to medicaments and other exogenous substances Is this a current diagnosis for this admission?: Yes Plan: Patient's home dose of levothyroxine is continued. (7) Chronic pain Is this a current diagnosis for this admission?: Yes Plan: The patient has chronic pain related to rheumatoid and osteo-arthritis. Her home medication regimen is continued: Mobic 15 mg daily and hydrocodone as needed. The patient's daughter has reported that the patient has had multiple falls at home recently; perhaps related to pain, ambulatory dysfunction related to arthritis, or medications. We will ask physical therapy and occupational therapy to evaluate and make recommendations. Discharge planning is consulted. - Time Time Spent with patient: 25-34 minutes Medications reviewed and adjusted accordingly: Yes Anticipated discharge: SNF Within: when bed available
[2018-09-20] MEDS: AMLODIPINE BESYLATE 10 MG TABLET PO SCH (22:47)
[2018-09-20] MEDS: OXYBUTYNIN CHLORIDE 5 MG TABLET PO SCH (22:47)
[2018-09-20] MEDS: TEMAZEPAM 7.5 MG CAPSULE PO PRN (22:47)
[2018-09-21] MEDS: HYDROCODONE/ACETAMINOPHEN 5-325 MG TABLET PO PRN ×3 (00:07→22:00)
[2018-09-21] MEDS: HEPARIN SOD (PORCINE) 5,000 UNIT/ML 1 ML SYRINGE SUBCUT SCH ×3 (05:25→21:53)
[2018-09-21] MEDS: CLINDAMYCIN HCL 150 MG CAPSULE PO SCH ×4 (05:26→17:26)
[2018-09-21 05:45] LABS: HEMATOCRIT 45.2 % (36.0-47.0); HEMOGLOBIN 15.2 g/dL (12.0-15.5); MEAN CORPUSCULAR HEMOGLOBIN 30.6 pg (27.0-33.4); MEAN CORPUSCULAR HGB CONC 33.6 g/dL (32.0-36.0); MEAN CORPUSCULAR VOLUME 91 fl (80-97); PLATELET COUNT 268 10^3/uL (150-450); RED BLOOD COUNT 4.96 10^6/uL (3.72-5.28); RED CELL DISTRIBUTION WIDTH 16.5 % (11.5-14.0); WHITE BLOOD COUNT 13.9 10^3/uL (4.0-10.5)
[2018-09-21] MEDS: PREDNISONE 5 MG TABLET PO SCH (10:13)
[2018-09-21] MEDS: LOSARTAN POTASSIUM 50 MG TABLET PO SCH (10:13)
[2018-09-21] MEDS: LORAZEPAM 1 MG TABLET PO PRN ×3 (10:13→22:00)
[2018-09-21] MEDS: FOLIC ACID 1 MG TABLET PO SCH (10:14)
[2018-09-21] MEDS: DULOXETINE HCL 30 MG CAPSULE.DR PO SCH ×2 (10:14→21:53)
[2018-09-21] MEDS: ASPIRIN 81 MG TABLET, ENT COATED PO SCH (10:14)
[2018-09-21] MEDS: MELOXICAM 15 MG TABLET PO SCH (10:15)
[2018-09-21] MEDS: LEVOTHYROXINE SODIUM 0.075 MG TABLET PO SCH (10:15)
[2018-09-21] MEDS: FAMOTIDINE 20 MG TABLET PO SCH ×2 (10:16→21:53)
--- NOTE | 2018-09-21 16:47 | PDOC PROGRESS REPORT ---
Subjective Progress Note for:: 09/21/18 Subjective:: No adverse events overnight. No new complaints. Vital signs been stable. We talked about her recommendations from PT that she go to a group home facility. She is apprehensive because of a negative experience that she had during a stay previously at a group home facility. She denies any diarrhea. Reason For Visit: LEFT LEG CELLULITIS, RA Physical Exam Vital Signs: Temp Pulse Resp BP Pulse Ox 98.9 F 73 16 113/97 H 97 09/21/18 12:00 09/21/18 14:00 09/21/18 12:00 09/21/18 12:00 09/21/18 12:00 Intake & Output 09/20/18 09/21/18 09/22/18 06:59 06:59 06:59 Intake Total 1779 905 400 Output Total 3300 1500 300 Balance -1521 -595 100 Weight 76.5 kg 79.2 kg General appearance: PRESENT: no acute distress, cooperative, morbidly obese, well-developed, well-nourished Respiratory exam: PRESENT: clear to auscultation ollie, symmetrical, unlabored. ABSENT: rales, rhonchi, wheezes Cardiovascular exam: PRESENT: RRR. ABSENT: diastolic murmur, rubs, systolic murmur Pulses: PRESENT: normal dorsalis pedis pul Vascular exam: PRESENT: normal capillary refill GI/Abdominal exam: PRESENT: normal bowel sounds, soft. ABSENT: distended, guarding, mass, organolmegaly, rebound, tenderness Extremities exam: PRESENT: full ROM. ABSENT: calf tenderness, clubbing, pedal edema Neurological exam: PRESENT: alert, awake, oriented to person, oriented to place , oriented to time Psychiatric exam: PRESENT: appropriate affect, normal mood Skin exam: PRESENT: dry, erythema - anterior LLE from just distal of knee extending to ankle, medial/anterior RLE to the mid lower leg (well circumscribed ); decreased intensity of color. Erythema to BUE has resolved. Results Laboratory Results: 09/21/18 04:26 09/19/18 04:57 09/21/18 04:26 WBC 13.9 H RBC 4.96 Hgb 15.2 Hct 45.2 MCV 91 MCH 30.6 MCHC 33.6 RDW 16.5 H Plt Count 268 Assessment & Plan - Diagnosis (1) Cellulitis of left lower extremity Is this a current diagnosis for this admission?: Yes Plan: Doing well on clindamycin. Because of the association with C. difficile, I have added a probiotic supplement. Reviewed and see how she is able to do with PT and OT and see if she changes her mind about going to a group home facility. - Time Time Spent with patient: 25-34 minutes
[2018-09-21] MEDS: LACTOBACILLUS ACIDOPHILUS 250 MG TAB PO SCH (17:25)
[2018-09-21] MEDS: AMLODIPINE BESYLATE 10 MG TABLET PO SCH (21:53)
[2018-09-21] MEDS: OXYBUTYNIN CHLORIDE 5 MG TABLET PO SCH (21:53)
[2018-09-21] MEDS: TEMAZEPAM 7.5 MG CAPSULE PO PRN (22:00)
[2018-09-22] MEDS: CLINDAMYCIN HCL 150 MG CAPSULE PO SCH ×4 (00:32→17:08)
[2018-09-22] MEDS: HEPARIN SOD (PORCINE) 5,000 UNIT/ML 1 ML SYRINGE SUBCUT SCH ×3 (05:34→22:07)
[2018-09-22] MEDS: PREDNISONE 5 MG TABLET PO SCH (09:28)
[2018-09-22] MEDS: LOSARTAN POTASSIUM 50 MG TABLET PO SCH (09:28)
[2018-09-22] MEDS: DULOXETINE HCL 30 MG CAPSULE.DR PO SCH ×2 (09:28→22:07)
[2018-09-22] MEDS: LACTOBACILLUS ACIDOPHILUS 250 MG TAB PO SCH ×2 (09:28→17:07)
[2018-09-22] MEDS: MELOXICAM 15 MG TABLET PO SCH (09:30)
[2018-09-22] MEDS: FAMOTIDINE 20 MG TABLET PO SCH ×2 (09:30→22:07)
[2018-09-22] MEDS: ASPIRIN 81 MG TABLET, ENT COATED PO SCH (09:30)
[2018-09-22] MEDS: FOLIC ACID 1 MG TABLET PO SCH (09:30)
[2018-09-22] MEDS: LEVOTHYROXINE SODIUM 0.075 MG TABLET PO SCH (09:31)
[2018-09-22] MEDS: LORAZEPAM 1 MG TABLET PO PRN ×2 (09:36→22:08)
[2018-09-22] MEDS: HYDROCODONE/ACETAMINOPHEN 5-325 MG TABLET PO PRN (09:36)
--- NOTE | 2018-09-22 19:37 | PROGRESS NOTE E ---
Progress Note NAME: BOOM OROPEZA : 1940 AGE: 78Y DATE: 09/22/2018 ROOM: 534 SUBJECTIVE: The patient is a 78-year-old female who is out of bed to the bedside chair when I rounded. The patient had her legs propped up on her walker, stating that was comfortable for her. The patient states that her legs are much cooler. They are not hot, and the redness is receding. The patient still feels about the same. The patient denies any nausea, vomiting, diarrhea. No shortness of breath, dizziness, chest pain, fevers, or chills. The patient has been afebrile. Blood pressure has been in good range. The patient does not voice any other concerns at this time. REVIEW OF SYSTEMS: Rest of the review of systems negative. MEDICATIONS: Medications were reviewed. OBJECTIVE: GENERAL: The patient is a 78-year-old female who is awake, alert, and oriented to person, place, time, and situation. She is verbal, conversational, and ambulatory. Does not appear to be in any acute distress. VITAL SIGNS: Temperature 98.2, pulse 69, respirations 14, blood pressure 140/83, oxygen saturation 97% on room air. SKIN: Warm and dry. No rashes. Not diaphoretic. HEENT: Pupils equal, round, and reactive to light and accommodation. No evidence of JVP. CVS: Heart is regular. No rub. CHEST: Clear, symmetrical, unlabored. ABDOMEN: Soft, nontender. EXTREMITIES: No clubbing or cyanosis. The patient's bilateral lower extremities do have a red coloration. They are not erythematous. Only slightly blanchable, though. DIAGNOSTICS/LAB VALUES: Hematology obtained 09/21/2018: WBC 7.9, hemoglobin 16.2, hematocrit 45.2, platelets 368,000. Chemistry obtained on 09/19/2018: Sodium 142, potassium 4.1, chloride 107, carbon dioxide 24, BUN 18, creatinine 0.63, glucose 86, calcium 9.3. ASSESSMENT AND PLAN: 1. BILATERAL LOWER EXTREMITY CELLULITIS. This appears to have resolved. The patient is doing well with oral clindamycin. She continues on probiotic therapy, currently awaiting disposition to a senior living facility. 2. HYPERTENSION. Blood pressure has been in acceptable range. Will continue the patient's home medications. 3. HYPERLIPIDEMIA. Will continue statin. 4. RHEUMATOID ARTHRITIS. The patient continues on her current medications. DISPOSITION: The patient is a full code. Depending on the patient's symptomatology and diagnostic findings, will reevaluate in the a.m. Time spent on this followup, including assessment, plan, physical examination, patient education, and review of records is 20 minutes. DICTATING PHYSICIAN: ELLY MORALES [id number] PHY#: [id number] ID: [id number] JOB#: [id number] ACCT: [id number] cc: >
[2018-09-22] MEDS: TEMAZEPAM 7.5 MG CAPSULE PO PRN (22:07)
[2018-09-22] MEDS: AMLODIPINE BESYLATE 10 MG TABLET PO SCH (22:07)
[2018-09-22] MEDS: OXYBUTYNIN CHLORIDE 5 MG TABLET PO SCH (22:09)
[2018-09-23] MEDS: CLINDAMYCIN HCL 150 MG CAPSULE PO SCH ×3 (00:02→11:20)
[2018-09-23] MEDS: HEPARIN SOD (PORCINE) 5,000 UNIT/ML 1 ML SYRINGE SUBCUT SCH (05:51)
[2018-09-23] MEDS: FOLIC ACID 1 MG TABLET PO SCH (09:06)
[2018-09-23] MEDS: DULOXETINE HCL 30 MG CAPSULE.DR PO SCH (09:06)
[2018-09-23] MEDS: FAMOTIDINE 20 MG TABLET PO SCH (09:06)
[2018-09-23] MEDS: ASPIRIN 81 MG TABLET, ENT COATED PO SCH (09:06)
[2018-09-23] MEDS: PREDNISONE 5 MG TABLET PO SCH (09:06)
[2018-09-23] MEDS: LOSARTAN POTASSIUM 50 MG TABLET PO SCH (09:06)
[2018-09-23] MEDS: LACTOBACILLUS ACIDOPHILUS 250 MG TAB PO SCH (09:06)
[2018-09-23] MEDS: MELOXICAM 15 MG TABLET PO SCH (09:07)
[2018-09-23] MEDS: LEVOTHYROXINE SODIUM 0.075 MG TABLET PO SCH (09:08)
[2018-09-23] MEDS: LORAZEPAM 1 MG TABLET PO PRN (09:15)
[2018-09-23 09:19] VITALS: BP 145/83
[2018-09-23] MEDS: HYDROCODONE/ACETAMINOPHEN 5-325 MG TABLET PO PRN (11:30)
--- NOTE | 2018-09-23 11:42 | TRANSFER SUMMARY E ---
Transfer Summary NAME: BOOM OROPEZA : 1940 AGE: 78Y ADMITTED: 09/17/2018 TRANSFERRED: 09/23/2018 CODE STATUS: Full code. PRIMARY CARE PROVIDER: Richi Gustafson MD DISCHARGE DIAGNOSES: 1. Bilateral lower extremity cellulitis. 2. Hypertension. 3. Hyperlipidemia. 4. Rheumatoid arthritis. 5. General anxiety disorder. DISICHARGE MEDICATIONS: 1. Ativan 1 mg p.o. t.i.d. p.r.n. 21 tablets, 0 refills. 2. Lactobacillus acidophilus 500 mg p.o. b.i.d.; 60 tablets, 0 refills. 3. Ibuprofen/hydrocodone 7.5 mg/200 1 tablet p.o. t.i.d. p.r.n.; 21 tablets, 0 refills. 4. Clindamycin 150 mg p.o. q. 6 hours; 16 tablets, 0 refills. 5. Prednisone 10 mg p.o. daily. 6. Potassium chloride 20 mEq p.o. daily. 7. Oxybutynin chloride 10 mg p.o. q. hour of sleep. 8. Mobic 15 mg p.o. daily. 9. Cozaar 100 mg p.o. daily. 10. Synthroid 0.75 mg p.o. q. a.m. 11. Folic acid 3 mg p.o. daily. 12. Cymbalta 60 mg p.o. q. 12 hours. 13. Aspirin 81 mg p.o. daily. DIET: As tolerated. ACTIVITIES: Per rehab standards. CONDITION: Fair. DIAGNOSTICS/LAB VALUES: Hematology obtained 09/21/2018: WBC 13.9, hemoglobin 15.2, hematocrit 45.2, platelets 368,000. Chemistry obtained on 09/19/2018: Sodium 142, potassium 4.1, chloride 107, carbon dioxide 24, BUN 18, creatinine 0.63, glucose 86, calcium 9.3, bilirubin is 0.3, AST 19, ALT 21, alkaline phosphatase 37, total protein 7.4, albumin 4.4. Microbiology blood cultures obtained on 09/17/2018 reveal no growth. PHYSICAL EXAMINATION: GENERAL: The patient is well-developed, well-nourished, 78-year-old female who is awake, alert, and oriented to person, place, time, and situation. She is verbal, conversational. Does not appear to be in any acute distress. VITAL SIGNS: Temperature 97.7, pulse 77, respirations 20, blood pressure 145/83, oxygen saturation 100% on room air. SKIN: Warm and dry. No rashes. She is not diaphoretic. HEENT: Pupils equal, round, and reactive to light and accommodation. Conjunctivae pink. No evidence of JVP. CVS: Heart is regular. No murmur or rub. CHEST: Clear, symmetrical, unlabored. ABDOMEN: Soft, nontender, nondistended. BACK No CVA tenderness or sacral tenderness EXTREMITIES: No clubbing or cyanosis, edema; redness has receded significantly of her lower extremities. There is no warmth to the touch. PSYCHIATRIC: Appropriate affect. Pleasant mood. HISTORY OF PRESENT ILLNESS: The patient is a 78-year-old female with a past medical history of rheumatoid arthritis. The patient presented to the Emergency Department with a chief complaint of left leg pain as well as redness and fever. The patient stated that she had stopped taking her methotrexate for a pending right carpal tunnel surgery. The patient presents with 4 days of worsening erythema and pain to her left lower extremity. The patient suspected a scratch from her puppy but now developed a red, pruritic-appearing rash over the lower extremity bilaterally and across her back. The patient was seen in Urgent Care and was given a dose of IM Rocephin and possibly Kenalog without significant improvement. While in the Emergency Department the patient was found to have leukocytosis of 17,000. We started on her IV clindamycin and was referred to the hospital for admission and management. HOSPITAL COURSE: The patient was admitted to the Telemetry Unit. The patient was initially covered with 3 days of IV clindamycin with complete resolution of the warmth associated with her symptoms, redness that continued to improve. The patient's pain resolved and her symptoms continued to improve. The patient was seen and evaluated by therapy and was recommended [facility] rehabilitation. The patient was resumed on her home medicines, other than methotrexate, and the patient will keep this on hold until her upcoming surgery. DISCHARGE PLANNING 1. The patient is advised to follow with a crown presser as already scheduled. 2. The patient is advised to follow up with her primary care provider for hospital follow up. Time spent on this transfer, including assessment, plan, physical examination, patient education, review of records, and resource alignment 35 minutes. DICTATING PHYSICIAN: ELLY MORALES NP [id number] PHY#: [id number] ID: [id number] JOB#: [id number] ACCT: [id number] cc:ELLY MORALES NP >
== END 2018-09-23 13:00 | DRG 603 ==
LOC: ER 14:24 → EH 19:50 → 5 21:37
PROVIDERS: ADMIT Internal Medicine; ATTEND Internal Medicine
DX: L03.116 Cellulitis of left lower limb (principal); M06.89 Other specified rheumatoid arthritis, multiple sites; I10 Essential (primary) hypertension; E78.00 Pure hypercholesterolemia, unspecified; F41.1 Generalized anxiety disorder; F32.9 Major depressive disorder, single episode, unspecified; F17.210 Nicotine dependence, cigarettes, uncomplicated; L29.9 Pruritus, unspecified; E66.01 Morbid (severe) obesity due to excess calories; E03.2 Hypothyroidism due to medicaments and other exogenous substances; R29.6 Repeated falls; G89.29 Other chronic pain; D72.829 Elevated white blood cell count, unspecified; Z91.81 History of falling; Z79.82 Long term (current) use of aspirin; Z79.899 Other long term (current) drug therapy
CPT/HCPCS: 36415; 80048; 80053; 85025; 85027; 85652; 87040; 99284; G8978-GP; G8979-GP; G8987-GO; G8988-GO; G8989-GO; J1644; J3490; J7030; J7512